=== PATIENT | female | born 1985 | race Caucasian/White ===

== ENCOUNTER 2023-01-19 15:35 | Inpatient (IN) | payer BC, MEDICAID, SELFPAY ==
[2023-01-19] VITALS (7 sets, daily range): BP systolic 121–152; BP diastolic 87–106; PULSE 76–92; RESP 15–18; TEMP 35.7–36.8; O2SAT 95–100; BMI 51.0; BMI 24.7; BMI 21.8
--- NOTE | 2023-01-19 16:10 | CT_ITS ---
EXAM: CT HEAD WITHOUT INTRAVENOUS CONTRAST CLINICAL INDICATION: fall TECHNIQUE: Multiple axial images were obtained of the head without intravenous contrast. This CT exam was performed using one or more of the following dose reduction techniques: automated exposure control, adjustment of the mA and/or kV according to patient size, and/or use of iterative reconstruction technique. This report was created using [employer] report generation technology. COMPARISON: 06/26/2017 FINDINGS: BRAIN AND EXTRA-AXIAL SPACES: Unremarkable. No intra- or extra-axial hemorrhage. No evidence of acute infarct. No intracranial mass or mass effect. There is preservation of the martinez/white matter interface. Posterior fossa structures are unremarkable. Ventricles are appropriate for age. No hydrocephalus. Basal cisterns are patent. BONES/JOINTS: Unremarkable. No discrete lytic or blastic abnormalities. SINUSES: Unremarkable as visualized. Clear. MASTOID AIR CELLS: Unremarkable. Clear. ORBITS: Visualized globes, extraocular muscles, optic nerves and retrobulbar fat appear unremarkable. CT/Brain/Head without Contrast IMPRESSION: Negative head/brain CT without intravenous contrast. There has been no change from the reference examination. Electronically Signed: Margarito Loza MD at 18:04 EST ,
--- NOTE | 2023-01-19 16:17 | EDS_ITS ---
HPI History of Present Illness Chief Complaint: ETOH Intox Narrative Narrative: Patient presents intoxicated. I can get some history from her and she admits to quite a bit of alcohol but she does not remember where she is coming from, she was brought in by her roommate who apparently found her at the bottom of the steps. Patient is denying a headache or head injury or fall however my history is relatively limited. PFSH PFSH Home Medications bupropion HCl 150 mg 24 hr tablet, extended release 150 mg PO DAILY 01/19/23 [History Last Taken Unknown] clobetasol 0.05 % topical cream 1 applic topical BID 01/19/23 [History Last Taken Unknown] duloxetine 60 mg capsule,delayed release 60 mg PO DAILY 01/19/23 [History Last Taken Unknown] gabapentin 300 mg capsule 300 mg PO BID 01/19/23 [History Last Taken Unknown] propranolol 20 mg tablet 20 mg PO BID 01/19/23 [History Last Taken Unknown] Allergy/AdvReac Type Severity Reaction Status Date / Time No Known Allergies Allergy Verified 01/19/23 17:11 Social History Smoking Status: Current every day smoker tobacco type: cigarettes and e- cigarettes ROS ROS ED Review of Systems ROS Unobtainable: due to mental status and other Details: Alcohol intoxication EXAM Physical Exam Narrative Exam Narrative: Physical exam General: Patient is sleeping however I can arouse her. Head: Normocephalic, I cannot see any signs of trauma. Eyes: Conjunctiva not pale ENT: Moist mucous membranes, normal dentition no signs of trauma normal tongue without bite. Neck: Supple, Nontender, No lymphadenopathy, no C-spine tenderness Cardiovascular: Regular rate, Regular rhythm Respiratory: No distress, CTA bilaterally Abdomen: Soft, Nontender, Nondistended Back: Nontender, Normal Inspection. Negative for: CVA tenderness, no signs of trauma Extremities: Nontender, No edema, full range of motion without signs of trauma Skin: Normal color, No rash Neurological: Somnolent but arousable with no gross focal deficit Const Vital Signs: 01/19/23 15:37 01/19/23 17:15 01/19/23 15:44 Temperature 96.2 F L Temperature Source Temporal Pulse Rate 83 76 Respiratory Rate 18 15 Respiratory Effort Normal Non-Labored Respiratory Pattern Normal Blood Pressure 150/99 H 121/98 H Blood Pressure Mean 116 105 Pulse Ox 95 96 Oxygen Delivery Method Room Air Room Air 01/19/23 17:44 01/19/23 19:24 Temperature Temperature Source Pulse Rate 80 Respiratory Rate 16 Respiratory Effort Respiratory Pattern Blood Pressure 136/87 H Blood Pressure Mean 103 Pulse Ox 97 99 Oxygen Delivery Method Room Air Room Air MDM MDM Lab Data Labs: Laboratory Results - last 24 hr 01/19/23 01/19/23 01/19/23 17:05 17:05 17:05 WBC 5.8 RBC 5.07 Hgb 12.1 Hct 40.7 MCV 80.3 L MCH 23.9 L MCHC 29.7 L RDW Std Deviation 80.3 H RDW Coeff of Demarcus 27.9 H Plt Count 264 MPV 7.8 Differential Comment SCANNED Sodium 146 H Potassium 3.6 Chloride 108 H Carbon Dioxide 31.0 Anion Gap 7 BUN 13 Creatinine 0.57 Estim Creat Clear Calc 118.96 Est GFR (MDRD) Af Amer 155 Est GFR (MDRD) Non-Af 128 BUN/Creatinine Ratio 22.8 H Glucose 90 Calcium 8.7 Total Bilirubin 0.20 AST 162 H ALT 180 H Alkaline Phosphatase 130 H Total Protein 7.7 Albumin 3.9 Globulin 3.8 Albumin/Globulin Ratio 1.0 Ethyl Alcohol 505.0 H* Radiography Diagnostic Testing: Clinical Impression(s) from Imaging Studies Brain CT 01/19/23 16:10 IMPRESSION: Negative head/brain CT without intravenous contrast. There has been no change from the reference examination. Electronically Signed: Margarito Loza MD at 18:04 EST , Patient was observed in the ED her alcohol level is quite elevated at 5.5. After hours of observation she is more lucid and coherent she tells me she has a 14-year-old boy at home and has been, she tries to not drink every day but every morning she wakes up she starts shaking and feeling quite nauseated therefore she feels like she has to drink. She drinks quite a bit of vodka. She does not want detox at this time. I will talk to the hospitalist for admission. Discharge Plan Triage Chief Complaint: ETOH Intox Other Complaint: Alt LOC ED Provider: Damir Gibson Dx/Rx/DC Orders Clinical Impression: Head injury, Alcohol intoxication, Fall Prescriptions: No Action clobetasol 0.05 % cream 1 applic TOPICAL BID Label Comments: APPLY TO AFFECTED AREA OF THE HANDS TWICE DAILY X2 WEEKS NEEDED FOR FLARES gabapentin 300 mg capsule 300 mg PO BID Label Comments: TAKE 1 ORAL CAPSULE 2 TIMES A DAY FOR ANXIETY propranolol 20 mg tablet 20 mg PO BID bupropion HCl 150 mg tablet extended release 24 hr 150 mg PO DAILY duloxetine 60 mg capsule,delayed release(DR/EC) 60 mg PO DAILY Primary Care Provider: [facility],Out of Referrals: [facility],Out of [Primary Care Provider] - Disposition Disposition: Acute Care Hospital [facility]
[2023-01-19 17:19] LABS: Hematocrit 40.7 % (37-47); Hemoglobin 12.1 g/dL (12.0-15.0); Mean Corp Hgb Conc 29.7 g/dL (32-36); Mean Corpuscular Hgb 23.9 pg (27.0-32.0); Mean Corpuscular Volume 80.3 fL (81-99); Mean Platelet Vol. 7.8 fl (6.2-12.0); POSITIVE MORPHOLOGY YES; Platelet Count 264 K/mm3 (150-450); RBC Distribution Width CV 27.9 % (11.6-14.6); RBC Distribution Width SD 80.3 fl (35.1-43.9); Red Blood Count 5.07 M/mm3 (4.2-5.4); White Blood Count 5.8 K/mm3 (4.4-11.0)
[2023-01-19 17:31] LABS: AST(SGOT) 162 U/L (15-37); Alanine Aminotransfer ALT/SGPT 180 U/L (13-56); Albumin, Serum 3.9 g/dL (3.2-5.0); Alkaline Phosphatase 130 U/L (45-117); Anion Gap 7 (5-15); BUN 13 mg/dL (7-18); BUN/Creat Ratio 22.8 RATIO (10-20); Calcium,Total 8.7 mg/dL (8.5-10.1); Chloride 108 mmol/L (98-107); Creatinine, Serum 0.57 mg/dL (0.55-1.02); EST Glomerular Filtration Rate 128 mL/min (>60); Est Glom Filt Rate - Afr Amer 155 mL/min (>60); Estimated Creatinine Clearance 118.96 ml/min; Globulin 3.8 g/dL (2.2-4.2); Glucose 90 mg/dL (74-106); Potassium 3.6 mmol/L (3.5-5.1); Protein, Total 7.7 g/dL (6.4-8.2); Sodium Level 146 mmol/L (136-145)
[2023-01-19 17:37] LABS: Scan Indicated on CBC? Y/N YES- FLAGS NOTED
[2023-01-19 17:59] LABS: Differential Comment SCANNED
--- NOTE | 2023-01-19 20:58 | PCM.HP.STD ---
HPI - General General Date of Admission: 01/19/23 Date of Service: 01/19/23 Chief Complaint: Desire for alcohol detoxification HPI Narrative LISA TURPIN, is a 37 F with a significant history of Raynaud's disease; depression and anxiety (on bupropion; duloxetine and propranolol);fibromyalgia and alcoholism who originally presented to the emergency department because she was found drunk and on the floor who is now requesting detox. Patient reported that she was sober from alcohol for about 7 years but less than a month ago she began drinking again. She drinks a lot of vodka each day. Last time she drank was just before coming to the emergency department [facility] Medical History (Updated 01/19/23 @ 22:51 by Christin Diaz) Anxiety Breast implant status Depression Home Medications bupropion HCl 150 mg 24 hr tablet, extended release 150 mg PO DAILY Check with primary doctor 01/19/23 [History Last Taken 01/18/23] clobetasol 0.05 % topical cream 1 applic topical BID Check with primary doctor 01/19/23 [History Last Taken Unknown] duloxetine 60 mg capsule,delayed release 60 mg PO DAILY Check with primary doctor 01/19/23 [History Last Taken 01/18/23] ferrous sulfate 325 mg (65 mg iron) tablet 325 mg PO QODAY Check with primary doctor 01/19/23 [History Last Taken 01/18/23] gabapentin 300 mg capsule 300 mg PO BID Check with primary doctor 01/19/23 [History Last Taken 01/18/23] omeprazole 20 mg capsule,delayed release 20 mg PO DAILY Check with primary doctor 01/19/23 [History Last Taken 01/18/23] propranolol 20 mg tablet 20 mg PO BID Check with primary doctor 01/19/23 [History Last Taken 01/18/23] Allergy/AdvReac Type Severity Reaction Status Date / Time No Known Allergies Allergy Verified 01/19/23 17:11 Family History Other Diabetes Hypertension Surgical History History of appendectomy Social History Smoking Status: Current every day smoker tobacco type: cigarettes and e-cigarettes ROS ROS Narrative Pertinent positives and pertinent negatives as noted in HPI. All other systems were reviewed and are negative Vital Signs Vital Signs Vital Signs: 01/19/23 15:37 01/19/23 17:15 01/19/23 15:44 Temperature 96.2 F L Temperature Source Temporal Pulse Rate 83 76 Respiratory Rate 18 15 Respiratory Effort Normal Non-Labored Respiratory Pattern Normal Blood Pressure 150/99 H 121/98 H Blood Pressure Mean 116 105 Pulse Ox 95 96 Oxygen Delivery Method Room Air Room Air 01/19/23 17:44 01/19/23 19:24 Temperature Temperature Source Pulse Rate 80 Respiratory Rate 16 Respiratory Effort Respiratory Pattern Blood Pressure 136/87 H Blood Pressure Mean 103 Pulse Ox 97 99 Oxygen Delivery Method Room Air Room Air Weight Weight: 65.431 kg Body Mass Index (BMI) 24.7 Physical Exam Narrative Physical exam: General: Well-nourished, well-developed. Head: Normocephalic, atraumatic, no tenderness Eyes: Vision is grossly intact. EOMI ENT, no trauma, moist mucous membranes, no rhinorrhea Neck: Nontender, No thyromegaly. CVS: Regular rate and rhythm. S1-S2 present. No murmur, gallop or rub. Respiratory : clear to auscultation bilaterally, chest wall nontender, no wheezing Abdomen: Soft, nontender, nondistended, normal bowel sounds, no masses : Deferred Back: Nontender, no CVA tenderness, no midline spinal tenderness, deformities, step-offs Extremities: Nontender full range of motion, no trauma Skin: Normal color, no trauma, abrasions Neuro: Alert, oriented, cranial nerves II through XII grossly intact. Psychiatry: Normal mood. Normal affect. Not depressed. Not anxious. Results Lab / Micro Data Result Diagrams: 01/19/23 17:05 01/19/23 17:05 Labs: Laboratory Results - last 24 hr 01/19/23 17:05: WBC 5.8, RBC 5.07, Hgb 12.1, Hct 40.7, MCV 80.3 L, MCH 23.9 L, MCHC 29.7 L, RDW Std Deviation 80.3 H, RDW Coeff of Demarcus 27.9 H, Plt Count 264, MPV 7.8, Differential Comment SCANNED 01/19/23 17:05: Sodium 146 H, Potassium 3.6, Chloride 108 H, Carbon Dioxide 31.0, Anion Gap 7, BUN 13, Creatinine 0.57, Estim Creat Clear Calc 118.96, Est GFR (MDRD) Af Amer 155, Est GFR (MDRD) Non-Af 128, BUN/Creatinine Ratio 22.8 H, Glucose 90, Calcium 8.7, Total Bilirubin 0.20, AST 162 H, ALT 180 H, Alkaline Phosphatase 130 H, Total Protein 7.7, Albumin 3.9, Globulin 3.8, Albumin/Globulin Ratio 1.0 01/19/23 17:05: Ethyl Alcohol 505.0 H* Radiology Impression Brain CT 01/19/23 16:10 IMPRESSION: Negative head/brain CT without intravenous contrast. There has been no change from the reference examination. Electronically Signed: Margarito Loza MD at 18:04 EST , Assessment & Plan Assessment/Plan (1) Alcohol intoxication: (2) Desire for detoxification: PLAN: Plan Alcohol intoxication, dependence and desire for detoxification Patient be started on phenobarbital and other adjunctive medications: Gabapentin as needed; dicyclomine as needed; Vistaril as needed; Imodium as needed; trazodone as needed; Zofran as needed; scheduled thiamine; and schedule folic acid. Monitor CIWA score Tobacco abuse Counseled Nicotine patch and nicotine gum prescribed. DVT prophylaxis Low risk Encourage to ambulate Charges/Coding Visit Charges Inpatient E&M: 56730 Init Hosp L2
[2023-01-19 22:28] LABS: Internal QC Validated? YES +Cl - CLEAR BKGD; Pregnancy, Serum, hCG Quali. NEGATIVE Negative
[2023-01-19] MEDS: Clobetasol Propionate 0.05% Cream 1 APPLIC TOPICAL (23:32)
[2023-01-19] MEDS: Propranolol 10 MG Tablet 20 MG PO (23:32)
[2023-01-19] MEDS: Gabapentin 300 MG Capsule PO (23:33)
[2023-01-19] MEDS: Phenobarbital 32.4 MG Tablet PO (23:33)
[2023-01-19] MEDS: hydrOXYzine PAM 25 MG Capsule 50 MG PO (23:33)
[2023-01-19] MEDS: traZODone 100 MG Tablet PO (23:33)
[2023-01-19] MEDS: Nicotine Polacrilex 2 MG GUM PO (23:41)
[2023-01-20] MEDS: Phenobarbital 32.4 MG Tablet PO ×6 (04:00→23:44)
[2023-01-20 04:08] VITALS: BP 118/79; PULSE 95; RESP 18; TEMP 37.1; O2SAT 95
[2023-01-20] MEDS: Folic Acid 1 MG Tablet PO (08:43)
[2023-01-20] MEDS: Thiamine Hydrochloride 100 MG Tablet PO (08:43)
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
[2023-01-20 10:14] VITALS: BP 132/81; PULSE 99; RESP 16; TEMP 37.2; O2SAT 99
[2023-01-20] MEDS: DULoxetine Hcl 60 MG Capsule PO (10:19)
[2023-01-20] MEDS: buPROPion (XL) 150 MG TABLET.XL PO (10:19)
[2023-01-20] MEDS: Propranolol 10 MG Tablet 20 MG PO ×2 (10:19→22:18)
[2023-01-20] MEDS: Gabapentin 300 MG Capsule PO ×2 (10:25→22:16)
[2023-01-20] MEDS: hydrOXYzine PAM 25 MG Capsule 50 MG PO ×4 (10:25→23:44)
[2023-01-20 14:24] VITALS: BP 139/91; PULSE 77; RESP 16; TEMP 36.9; O2SAT 100
[2023-01-20] MEDS: Ferrous Sulfate 325 MG Tablet PO (19:11)
[2023-01-20 19:13] VITALS: BP 141/93; PULSE 78; RESP 18; TEMP 36.7; O2SAT 100
[2023-01-20 21:56] VITALS: BP 138/94; PULSE 78; RESP 18; TEMP 36.8; O2SAT 100
[2023-01-20] MEDS: traZODone 100 MG Tablet PO (22:16)
[2023-01-21 03:52] VITALS: BP 121/76; PULSE 76; RESP 18; TEMP 36.6; O2SAT 98
[2023-01-21] MEDS: Phenobarbital 32.4 MG Tablet PO ×6 (03:54→23:10)
[2023-01-21] MEDS: hydrOXYzine PAM 25 MG Capsule 50 MG PO ×3 (07:03→23:10)
[2023-01-21 08:23] VITALS: BP 115/86; PULSE 79; RESP 16; TEMP 36.6; O2SAT 100
[2023-01-21] MEDS: DULoxetine Hcl 60 MG Capsule PO (08:28)
[2023-01-21] MEDS: Thiamine Hydrochloride 100 MG Tablet PO (08:28)
[2023-01-21] MEDS: Folic Acid 1 MG Tablet PO (08:28)
[2023-01-21] MEDS: Propranolol 10 MG Tablet 20 MG PO ×2 (08:28→22:10)
[2023-01-21] MEDS: Pantoprazole Sodium 20 MG Tablet PO (08:29)
[2023-01-21] MEDS: buPROPion (XL) 150 MG TABLET.XL PO (08:30)
[2023-01-21] MEDS: Sodium Chloride 0.65% 1 SPRAY SPRAY.BTL NASAL (08:30)
[2023-01-21] MEDS: Gabapentin 300 MG Capsule PO ×2 (09:39→22:10)
[2023-01-21 12:30] VITALS: BP 102/72; PULSE 79; RESP 16; TEMP 36.4; O2SAT 100
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
[2023-01-21] MEDS: Menthol/Lanolin/Calamine/Znox 113 GM Tube 1 APPLIC TOPICAL ×2 (15:28→22:10)
[2023-01-21 16:56] VITALS: BP 121/90; PULSE 77; RESP 16; TEMP 37.1; O2SAT 100
[2023-01-21 21:03] VITALS: BP 127/91; PULSE 84; RESP 18; TEMP 37.1; O2SAT 97
[2023-01-21] MEDS: traZODone 100 MG Tablet PO (22:10)
[2023-01-22] MEDS: Phenobarbital 32.4 MG Tablet PO ×4 (02:56→19:07)
[2023-01-22 03:00] VITALS: BP 102/66; PULSE 69; RESP 18; TEMP 36.5; O2SAT 98
--- NOTE | 2023-01-22 07:08 | PCM.PN.HOSP ---
Reason for Visit Reason for Visit: Diagnoses Alcohol use, unspecified with intoxication, unspecified (01/19/23) Subjective Subjective Still has some congestion, overall feeling better, has some sweats but not very shaky Objective Data Objective Data Vital Signs: Vital Signs Temp Pulse Resp BP Pulse Ox O2 Del Method 97.7 F L 69 18 102/66 98 Room Air 01/22/23 03:00 01/22/23 03:00 01/22/23 03:00 01/22/23 03:00 01/22/23 03:00 01/22/23 03:00 Oxygen Delivery Method Room Air Weight: 59.6 kg Body Mass Index (BMI) 21.8 Intake & Output: Intake and Output for Last 24 Hours 01/20/23 01/21/23 01/22/23 23:59 23:59 23:59 Intake Total 2260 / 2260 1300 / 1300 Balance 2260 / 2260 1300 / 1300 Lab / Micro Data Result Diagrams: 01/19/23 17:05 01/19/23 17:05 Physical Exam Narrative General: Alert, oriented, no apparent distress HEENT: Atraumatic, normocephalic, has some nasal congestion Eyes: Anicteric, normal conjunctiva, extraocular movements grossly intact Neck: Supple Respiratory: normal respiratory effort Cardiovascular: No over edema appreciated GI: Soft, nontender, nondistended Musculoskeletal: Moving all extremities Neuro: No overt focal neurological deficits Skin: Erythema in right AC improving, left hand also improving Psych: Cooperative Assessment & Plan Assessment/Plan (1) Alcohol intoxication: (2) Desire for detoxification: PLAN: Plan #Alcohol intoxication, dependence and desire for detoxification -Patient be started on phenobarbital and other adjunctive medications: Gabapentin as needed; dicyclomine as needed; Vistaril as needed; Imodium as needed; trazodone as needed; Zofran as needed; scheduled thiamine; and schedule folic acid. -Monitor CIWA score 3/: Continue phenobarb detox -3/2: Continue phenobarb detox -33: Taper will be done tomorrow evening and can be discharged at that time if stable #Nasal congestion?acute bacterial rhinosinusitis -Roughly 1 week from symptoms denies sinus tenderness, if continues will give course of antibiotics -3/2: Improving with nasal spray -33: Given timeline and continued symptoms will start Augmentin and treat for 5 days #Tobacco abuse -Counseled -Nicotine patch and nicotine gum prescribed. DVT prophylaxis Low risk Encourage to ambulate Charges/Coding Visit Charges Inpatient E&M: 37218 Subs Hosp L2
[2023-01-22] MEDS: Propranolol 10 MG Tablet 20 MG PO ×2 (08:20→20:54)
[2023-01-22] MEDS: DULoxetine Hcl 60 MG Capsule PO (08:21)
[2023-01-22] MEDS: Pantoprazole Sodium 20 MG Tablet PO (08:21)
[2023-01-22] MEDS: buPROPion (XL) 150 MG TABLET.XL 450 MG PO (08:21)
[2023-01-22] MEDS: Ferrous Sulfate 325 MG Tablet PO (08:21)
[2023-01-22] MEDS: Thiamine Hydrochloride 100 MG Tablet PO (08:21)
[2023-01-22] MEDS: Folic Acid 1 MG Tablet PO (08:23)
[2023-01-22] MEDS: Gabapentin 300 MG Capsule PO ×2 (08:26→20:54)
[2023-01-22] MEDS: Menthol/Lanolin/Calamine/Znox 113 GM Tube 1 APPLIC TOPICAL (08:27)
[2023-01-22 08:36] VITALS: BP 100/67; PULSE 70; RESP 16; TEMP 36.6; O2SAT 100
--- NOTE | 2023-01-22 09:52 | ADDICTION ---
Met with patient and completed all assessments. 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 Pt has refused any follow-up treatment.
[2023-01-22] MEDS: hydrOXYzine PAM 25 MG Capsule 50 MG PO ×2 (12:42→19:41)
[2023-01-22 12:47] VITALS: BP 125/96; PULSE 77; RESP 16; TEMP 37.2; O2SAT 100
[2023-01-22 17:46] VITALS: BP 115/79; PULSE 82; RESP 16; TEMP 36.9; O2SAT 100
[2023-01-22 17:47] VITALS: BP 115/79; PULSE 82; RESP 16; TEMP 36.9; O2SAT 100
[2023-01-22] MEDS: Acetaminophen 325 MG Tablet 650 MG PO (19:41)
[2023-01-22] MEDS: traZODone 100 MG Tablet PO (20:54)
[2023-01-22] MEDS: Amox/Clavulanate 875 MG Tablet PO (20:54)
[2023-01-22 21:30] VITALS: BP 113/67; PULSE 82; RESP 18; TEMP 37.1; O2SAT 100
[2023-01-23] MEDS: Phenobarbital 32.4 MG Tablet PO ×3 (01:25→13:13)
[2023-01-23 02:05] VITALS: BP 99/65; PULSE 71; RESP 18; TEMP 36.4; O2SAT 97
[2023-01-23] MEDS: buPROPion (XL) 150 MG TABLET.XL 450 MG PO (08:22)
[2023-01-23] MEDS: Propranolol 10 MG Tablet 20 MG PO (08:22)
[2023-01-23] MEDS: Folic Acid 1 MG Tablet PO (08:22)
[2023-01-23] MEDS: Thiamine Hydrochloride 100 MG Tablet PO (08:23)
[2023-01-23] MEDS: Amox/Clavulanate 875 MG Tablet PO (08:23)
[2023-01-23] MEDS: DULoxetine Hcl 60 MG Capsule PO (08:23)
[2023-01-23] MEDS: Pantoprazole Sodium 20 MG Tablet PO (08:24)
[2023-01-23] MEDS: Gabapentin 300 MG Capsule PO (08:25)
[2023-01-23 08:52] VITALS: BP 115/74; PULSE 72; RESP 16; TEMP 37.1; O2SAT 93
--- NOTE | 2023-01-23 09:46 | PCM.DC.SUM ---
Providers Date of Admission: 01/19/23 Date of Discharge: 01/23/23 Primary Care Physician: Karma Hernandez Reason For Visit: DESIRE FOR ALCOHOL DETOXIFICATION Diagnosis Discharge Diagnosis (1) Alcohol intoxication: Status: Acute Code(s): F10.929 - Alcohol use, unspecified with intoxication, unspecified (2) Desire for detoxification: Status: Acute Plan #Alcohol intoxication, dependence and desire for detoxification #Nasal congestion?acute bacterial rhinosinusitis #Tobacco abuse Medications at Discharge Home Medications clobetasol 0.05 % topical cream 1 applic topical BID Check with primary doctor 01/19/23 duloxetine 60 mg capsule,delayed release 60 mg PO DAILY Check with primary doctor 01/19/23 ferrous sulfate 325 mg (65 mg iron) tablet 325 mg PO QODAY Check with primary doctor 01/19/23 gabapentin 300 mg capsule 300 mg PO BID Check with primary doctor 01/19/23 omeprazole 20 mg capsule,delayed release 20 mg PO DAILY Check with primary doctor 01/19/23 propranolol 20 mg tablet 20 mg PO BID Check with primary doctor 01/19/23 amoxicillin 875 mg-potassium clavulanate 125 mg tablet 875 mg PO BID 7 days #14 tabs 01/23/23 bupropion HCl 150 mg 24 hr tablet, extended release 450 mg PO DAILY Check with primary doctor #90 tabs 01/23/23 Hospital Course Summary of Care Provided Minutes Spent on Discharge: 32 Hospital Course: LISA TURPIN, is a 37 F with a significant history of Raynaud's disease; depression and anxiety (on bupropion; duloxetine and propranolol);fibromyalgia and? alcoholism who originally presented to the emergency department because she was found drunk and on the floor?on 01/19/2023 and subsequently requested detox. She had been sober for about 7 years but a month ago she began drinking again and would drink a lot of vodka daily. She was admitted for phenobarb detox and tolerated this well. During her hospital stay she did receive Augmentin for sinus infection and also a topical cream added for a scar and rash on her left hand. On day of discharge she reported that her sweats were improving. She discussed with [facility] coordinator and ultimately she will DC to [facility] violence [facility] care with outpatient resources if she chooses to follow-up. Discharge instructions are as followed: -You have been prescribed Augmentin for your sinus infection that you will take twice daily for 7 days, first dose tonight -It is strongly advised that you refrain from any substance use. Please call [facility] located at [address] [place] [address] ([place] [phone]) if you are interested in further resources -Continue other home medication -Please call your primary care provider's office upon discharge to schedule a hospital follow up within 1 week. -For any concerning signs or symptoms please call 911 or proceed to the nearest emergency department Physical Exam Narrative General: Alert, oriented, no apparent distress HEENT: Atraumatic, normocephalic, has some nasal congestion Eyes: Anicteric, normal conjunctiva, extraocular movements grossly intact Neck: Supple Respiratory: normal respiratory effort Cardiovascular: No over edema appreciated GI: Soft, nontender, nondistended Musculoskeletal: Moving all extremities Neuro: No overt focal neurological deficits Skin: Erythema in right AC improving, left hand also improving Psych: Cooperative Weight / BMI Weight Weight: 59.6 kg Body Mass Index (BMI) 21.8 ABG / Lab / Microbiology Data Result Diagrams: 01/19/23 17:05 01/19/23 17:05 D/C Instructions Discharge Diet: No restrictions Meaningful Use Info Meaningful Use Diagnoses (Choose all that apply): None applicable Discharge Plan Admission Admit Date/Time: 01/19/23 20:53 Primary Reason for Your Visit: Alcohol detox Attending Provider: Lori Hollingsworth Primary Care Provider: Karma Hernandez Consulting Providers: Jesse Ellington Instructions Patient Instructions: Alcohol Addiction, Addiction: Getting Help, Addiction Recovery Counseling Additional Instructions / Restrictions: -You have been prescribed Augmentin for your sinus infection that you will take twice daily for 7 days, first dose tonight -It is strongly advised that you refrain from any substance use. Please call [facility] located at [address] [place], [place] [id number] ([place] [phone]) if you are interested in further resources -Continue other home medication -Please call your primary care provider's office upon discharge to schedule a hospital follow up within 1 week. -For any concerning signs or symptoms please call 911 or proceed to the nearest emergency department Discharge Orders/Prescriptions Prescriptions: New amoxicillin-pot clavulanate 875-125 mg Tablet 875 mg PO BID 7 Days Qty: 14 0RF Continued clobetasol 0.05 % cream 1 applic TOPICAL BID Label Comments: APPLY TO AFFECTED AREA OF THE HANDS TWICE DAILY X2 WEEKS NEEDED FOR FLARES gabapentin 300 mg capsule 300 mg PO BID Label Comments: TAKE 1 ORAL CAPSULE 2 TIMES A DAY FOR ANXIETY propranolol 20 mg tablet 20 mg PO BID duloxetine 60 mg capsule,delayed release(DR/EC) 60 mg PO DAILY ferrous sulfate 325 mg (65 mg iron) Tablet 325 mg PO QODAY omeprazole 20 mg capsule,delayed release(DR/EC) 20 mg PO DAILY Changed bupropion HCl 150 mg tablet extended release 24 hr 450 mg PO DAILY Qty: 90 0RF Referrals / Follow Up: Karma Hernandez [Primary Care Provider] - Within 1 Week [facility],Out of [Non-Staff] - Disposition Disposition (needs filled in before D/C Order can be placed): DC/Tx to Another Type of HCF Charges/Coding Visit Charges Inpatient E&M: 08615 Disch Hosp >30min
[2023-01-23] MEDS: hydrOXYzine PAM 25 MG Capsule 50 MG PO (12:22)
== END 2023-01-23 13:30 | disposition home or self-care (01) | DRG 897 ==
LOC: ED 20:54 → MS3 21:42
PROVIDERS: Admitting Provider Hospitalist; Emergency Provider Emergency Medicine; PCP Family Medicine; Visit Provider Internal Medicine
DX: F10.229 Alcohol dependence with intoxication, unspecified (principal); F10.239 Alcohol dependence with withdrawal, unspecified; F17.210 Nicotine dependence, cigarettes, uncomplicated; J01.90 Acute sinusitis, unspecified; F41.9 Anxiety disorder, unspecified; F17.290 Nicotine dependence, other tobacco product, uncomplicated; Y90.8 Blood alcohol level of 240 mg/100 ml or more; R21 Rash and other nonspecific skin eruption; F32.A Depression, unspecified; Z79.899 Other long term (current) drug therapy
CPT/HCPCS: 36415; 70450; 80053; 82077; 84703; 85027; 99284; 99406; J7030; A4216

== ENCOUNTER 2023-03-21 23:26 | Observation (INO) | payer BC, MEDICAID, SELFPAY ==
[2023-03-21 23:27] VITALS: BP 169/89; PULSE 104; RESP 18; TEMP 36; O2SAT 99; BMI 23.8
--- NOTE | 2023-03-21 23:42 | EX.ED.SAOD ---
HPI History of Present Illness Chief Complaint: Substance Abuse Detail of Chief Complaint: Alcohol abuse requesting detox. Informant: patient Onset/Context/Timing Onset: Today and Month(s) Current Severity: Moderate Maximum Severity: Moderate Narrative Narrative: 37-year-old female history of fibromyalgia and alcohol abuse. Last detox was about 3 months ago and states that the only time she was previously detox. History of alcohol abuse. Drinks hard liquor. Had a significant amount in the last 12 hours. Denies any falls or trauma. No vomiting or diarrhea. States I cannot do this alone and I need inpatient detox. Prior similar symptoms: Yes Recent Illness/Hospitalization: Yes [facility] Medical History Alcohol intoxication Anxiety Breast implant status Depression Fall Head injury Home Medications duloxetine 60 mg capsule,delayed release 60 mg PO DAILY Check with primary doctor 01/19/23 [History Last Taken 01/18/23] ferrous sulfate 325 mg (65 mg iron) tablet 325 mg PO QODAY Check with primary doctor 01/19/23 [History Last Taken 01/18/23] gabapentin 300 mg capsule 300 mg PO BID Check with primary doctor 01/19/23 [History Last Taken 01/18/23] propranolol 20 mg tablet 20 mg PO BID Check with primary doctor 01/19/23 [History Last Taken 01/18/23] bupropion HCl 150 mg 24 hr tablet, extended release 450 mg PO DAILY Check with primary doctor #90 tabs 01/23/23 [Rx Last Taken 01/18/23] hydroxyzine pamoate 25 mg capsule 50 mg PO Q6H PRN PRN mild anxiety 5 days #30 caps 01/23/23 [Rx Last Taken Unknown] Allergy/AdvReac Type Severity Reaction Status Date / Time No Known Allergies Allergy Verified 01/19/23 17:11 Family History Other Diabetes Hypertension Surgical History History of appendectomy Social History Smoking Status: Current every day smoker tobacco type: cigarettes and e-cigarettes ROS ROS ED ROS Narrative Denies recent illness. Review of Systems ROS Unobtainable: Denies due to encephalopathy Constitutional Constitutional ED: Denies chills or fever(s) Eyes Eyes: Denies blurry vision ENT ENT ED: Denies ear pain Cardiovascular Cardiovascular: Denies chest pain Respiratory/Chest Respiratory/Chest: Denies dyspnea Gastrointestinal Gastrointestinal: Denies abdominal pain, diarrhea, nausea or vomiting Genitourinary Genitourinary ED: Denies dysuria Musculoskeletal Musculoskeletal: Denies arthralgias Integumentary Denies abscess Neurologic Neurologic: Denies headache(s) Psychiatric Psychiatric: Denies anxiety Endocrine Endocrinology: Denies cold intolerance Hematologic/Lymphatic Hematologic/Lymphatic: Denies easy bleeding Allergic/Immunologic Allergic/Immunologic ED: Denies mouth swelling or tongue swelling EXAM Physical Exam Narrative Exam Narrative: 37-year-old female no acute distress. Vital signs are stable afebrile. H EENT exam unremarkable. Pupils round reactive light. Neck nontender. No lymphadenopathy. Lungs are clear equal symmetrical. Heart regular rhythm rate about 100 no murmur. Chest wall nontender. Abdomen soft nontender. Normal bowel sounds no peritoneal signs. Back nontender. Moving all 4 extremities. Normal motor strength. Normal range of motion. Nontender. No deformity. No edema. Neurologically she is awake and alert. Most likely intoxicated. But answering questions and following commands. Const Vital Signs: 03/21/23 23:27 Temperature 96.8 F L Temperature Source Temporal Pulse Rate 104 H Respiratory Rate 18 Blood Pressure 169/89 H Blood Pressure Mean 115 Pulse Ox 99 Oxygen Delivery Method Room Air Positive well nourished and well developed; Negative for obese, cachectic, contractures or unkempt General Appearance ED: well developed and NAD; Negative for unkempt, cachectic, contractures or pallor Nutritional Appearance: Negative for cachectic or obese HEENT Reports moist mucous membranes; Denies dry mucous membranes atraumatic; Negative for trauma or tenderness Mouth ED: No dry mucous membranes Mouth: No dry mucous membranes Eyes PERRL and EOMs intact bilaterally General Eye ED: Negative for pale conjunctiva or scleral icterus Neck no lymphadenopathy, supple and no JVD Thyroid: Negative for tender Lymph Lymphatic: no lymphadenopathy noted; Negative for lymphadenopathy Chest Wall inspection of chest normal and palpation of chest normal Chest: Negative for other Resp normal respiratory effort and clear to auscultation bilaterally Effort and Inspection: Negative for retractions Auscultation: Negative for rales, rhonchi or wheezes Cardio regular rate, regular rhythm, S1 normal heart sound, S2 normal heart sound and no murmurs Rate: Negative for bradycardia Rhythm: Negative for abnormal rhythm GI soft to palpation, non-tender, non-distended and no masses Inspection: Negative for abdominal distention Auscultation: Negative for hyperactive bowel sounds Palpation: Negative for tender, guarding or rigid Back/Spine no CVA tenderness General Back: Negative for CVA tenderness Cervical Spine: Negative for cervical spine tenderness Thoracic Spine / Upper Back: Negative for thoracic spinal tenderness Lumbar Spine / Lower Back: Negative for lumbar spinal tenderness Coccyx: Negative for swelling Extremity Extremity Narrative: Normal range of motion. Normal motor strength. General Extremety ED: Negative for edema or tenderness General Extremity: Negative for edema Neuro oriented x3 and CN's II-XII intact bilaterally Sensorium / Orientation: alert, oriented to person, oriented to place and oriented to time; Negative for confused, lethargic or stuporous Speech: speech normal Motor Exam: strength 5/5 throughout Psych mental status grossly normal and thought process normal Appearance: Negative for unkempt Attitude: No belligerent, No agitated, No aggressive and No hostile Mood & Affect: Negative for depressed, anxious or tearful Skin General Skin Exam: Negative for jaundice or pallor Lesions: no lesions Rashes: no rashes Trauma: Negative for abrasion or laceration MDM MDM MDM Narrative Medical decision making narrative: 37-year-old female history of alcohol abuse. Requesting detox. Exam benign. Screening labs being obtained and I will speak to the hospitalist about admission. History & Record Review Discussion w/independent historian: Patient Lab Data Attestation: I reviewed the patient's lab results. Lab results narrative: CBC White count of 4. H&H of 10.9 and 35.7. Platelets 281. Chemistries are unremarkable. LFTs are slightly elevated. The anemia is new her hemoglobin normally runs around 12. The liver enzymes have been more elevated in the past. Serum alcohol level 285. Labs: Laboratory Results - last 24 hr 03/21/23 23:56 WBC 4.7 RBC 4.24 Hgb 10.9 L Hct 35.7 L MCV 84.2 MCH 25.7 L MCHC 30.5 L RDW Std Deviation 70.6 H RDW Coeff of Demarcus 22.9 H Plt Count 281 MPV 8.2 Immature Gran % (Auto) 0.200 Neut % (Auto) 43.1 L Lymph % (Auto) 36.7 Roberts % (Auto) 16.8 H Eos % (Auto) 1.5 Baso % (Auto) 1.7 H Absolute Neuts (auto) 2.0 Absolute Lymphs (auto) 1.72 Nucleated RBC % 0 Discharge Plan Dx/Rx/DC Orders Clinical Impression: Alcohol abuse, Acute alcohol intoxication, Admitted to alcohol detoxification center Disposition Disposition: Acute Care Hospital [facility] Discharge Date/Time: 03/22/23 00:42
[2023-03-22] VITALS (8 sets, daily range): BP systolic 139–160; BP diastolic 84–114; PULSE 78–97; RESP 16–18; TEMP 36.2–37.4; O2SAT 96–100; BMI 23.1
[2023-03-22 00:02] LABS: Absolute Lymphocyte Count 1.72 X10^3/uL (0.83-4.51); Basophil# 0.08 X10^3/uL; Basophil% 1.7 % (0-1); Eosinophil# 0.07 X10^3/uL; Eosinophils% 1.5 % (0-5); Hematocrit 35.7 % (37-47); Hemoglobin 10.9 g/dL (12.0-15.0); Lymphocyte # 1.72 X10^3/ul (0.83-4.51); Lymphocyte % 36.7 % (19-41); Mean Corp Hgb Conc 30.5 g/dL (32-36); Mean Corpuscular Hgb 25.7 pg (27.0-32.0); Mean Corpuscular Volume 84.2 fL (81-99); Mean Platelet Vol. 8.2 fl (6.2-12.0); Monocyte# 0.79 X10^3/uL; Monocyte% 16.8 % (0-10); NRBC Flagged by Analyzer 0 % (0-5); Neutrophil # 2.02 X10^3/uL (2.7-7.7); Neutrophil % 43.1 % (47-70); POSITIVE MORPHOLOGY YES; Platelet Count 281 K/mm3 (150-450); RBC Distribution Width CV 22.9 % (11.6-14.6); RBC Distribution Width SD 70.6 fl (35.1-43.9); Red Blood Count 4.24 M/mm3 (4.2-5.4); White Blood Count 4.7 K/mm3 (4.4-11.0)
--- NOTE | 2023-03-22 00:05 | PCM.HP.STD ---
HPI - General General Date of Admission: 03/21/23 Date of Service: 03/22/23 Chief Complaint: Desire for detoxification HPI Narrative LISA TURPIN, is a 37 F with a significant history of Raynaud's disease; depression and anxiety (on bupropion; duloxetine and propranolol);fibromyalgia on gabapentin; and? alcoholism who presents to the emergency department for help with alcohol detoxification. Reportedly patient was a heavy alcoholic but became sober about 7 years only to resume drinking about 3 to 4 months ago secondary to his father passing away and problems in her marriage. She reports that before the 7 years of getting sober she used to drink heavily and few times but now she drinks every day. She drinks at least half a gallon of vodka each day. [facility] Medical History Alcohol intoxication Anxiety Breast implant status Depression Fall Head injury Home Medications duloxetine 60 mg capsule,delayed release 120 mg PO DAILY depression 01/19/23 [History Last Taken 03/21/23] ferrous sulfate 325 mg (65 mg iron) tablet 325 mg PO QODAY supplement 01/19/23 [History Last Taken 03/20/23] gabapentin 300 mg capsule 300 mg PO BID fibromyalgia 01/19/23 [History Last Taken 03/21/23] propranolol 20 mg tablet 20 mg PO BID anxiety 01/19/23 [History Last Taken 03/21/23] bupropion HCl 150 mg 24 hr tablet, extended release 450 mg PO DAILY Check with primary doctor #90 tabs 01/23/23 [Rx Last Taken 03/21/23] hydroxyzine pamoate 25 mg capsule 50 mg PO Q6H PRN PRN mild anxiety 5 days #30 caps 01/23/23 [Rx Last Taken Unknown] eszopiclone 3 mg tablet 3 mg PO QHS PRN Sleep 03/22/23 [History Last Taken Unknown] Allergy/AdvReac Type Severity Reaction Status Date / Time No Known Allergies Allergy Verified 01/19/23 17:11 Family History Other Diabetes Hypertension Surgical History History of appendectomy Social History Smoking Status: Current every day smoker tobacco type: cigarettes and e-cigarettes ROS ROS Narrative Pertinent positives and pertinent negatives as noted in HPI. All other systems were reviewed and are negative. Vital Signs Vital Signs Vital Signs: 03/21/23 23:27 03/22/23 00:00 Temperature 96.8 F L 97.1 F L Temperature Source Temporal Oral Pulse Rate 104 H 82 Respiratory Rate 18 16 Blood Pressure 169/89 H 139/84 H Blood Pressure Mean 115 102 Pulse Ox 99 97 Oxygen Delivery Method Room Air Room Air Weight Weight: 65.1 kg Body Mass Index (BMI) 23.8 Physical Exam Narrative Physical exam: General: Well-nourished, well-developed. Head: Normocephalic, atraumatic, no tenderness Eyes: Vision is grossly intact. EOMI ENT, no trauma, moist mucous membranes, no rhinorrhea Neck: Nontender, No thyromegaly. CVS: Regular rate and rhythm. S1-S2 present. No murmur, gallop or rub. Respiratory : clear to auscultation bilaterally, chest wall nontender Abdomen: Soft, nontender, nondistended, normal bowel sounds, no masses : Deferred Back: Nontender, no CVA tenderness, no midline spinal tenderness. Extremities: Nontender full range of motion, no trauma Skin: Normal color, no trauma, abrasions Neuro: Alert, oriented, cranial nerves II through XII grossly intact. Psychiatry: Normal mood. Normal affect. Not depressed. Not anxious. Results Lab / Micro Data Result Diagrams: 03/21/23 23:56 03/21/23 23:56 Assessment & Plan Assessment/Plan (1) Desire for detoxification: (2) Alcohol abuse: PLAN: Plan Alcohol dependence and desire for detoxification Alcohol level on presentation was 285. Patient be started on phenobarbital and other adjunctive medications: dicyclomine as needed; Vistaril as needed; Imodium as needed; trazodone as needed; Zofran as needed; scheduled thiamine; and schedule folic acid. Monitor CIWA score Tobacco abuse Counseled Nicotine patch prescribed. DVT prophylaxis Low risk Encourage to ambulate Charges/Coding Visit Charges Inpatient E&M: 15778 Init Hosp L2
[2023-03-22 00:06] LABS: Differential Indicated SCAN CRITERIA MET
[2023-03-22 00:21] LABS: ALB/GLOB Ratio 1.2 RATIO (0.9-2.4); AST(SGOT) 104 U/L (15-37); Alanine Aminotransfer ALT/SGPT 107 U/L (13-56); Albumin, Serum 3.7 g/dL (3.2-5.0); Alkaline Phosphatase 137 U/L (45-117); Anion Gap 4 (5-15); BUN 14 mg/dL (7-18); BUN/Creat Ratio 29.5 RATIO (10-20); Calcium,Total 8.5 mg/dL (8.5-10.1); Chloride 108 mmol/L (98-107); Creatinine, Serum 0.47 mg/dL (0.55-1.02); EST Glomerular Filtration Rate 158 mL/min (>60); Est Glom Filt Rate - Afr Amer 192 mL/min (>60); Estimated Creatinine Clearance 150.33 ml/min; Globulin 3.1 g/dL (2.2-4.2); Glucose 90 mg/dL (74-106); Potassium 3.7 mmol/L (3.5-5.1); Protein, Total 6.8 g/dL (6.4-8.2); Sodium Level 142 mmol/L (136-145)
[2023-03-22 00:27] LABS: Anisocytosis 2+
[2023-03-22] MEDS: Phenobarbital 32.4 MG Tablet 64.7999999999999972 MG PO ×6 (01:05→21:51)
[2023-03-22] MEDS: hydrOXYzine PAM 25 MG Capsule 50 MG PO ×2 (01:05→13:32)
[2023-03-22] MEDS: traZODone 100 MG Tablet PO (01:05)
--- NOTE | 2023-03-22 02:25 | PCM.PN.BLA ---
Progress Note Intubation Indication: [ ] Consent was obtained from: [ ] The patient was placed in the appropriate sniffing position. Preoxygenated sedation via [ ] was provided for a minimum of 3 minutes. The patient had continuous cardiac as well as pulse oximetry monitoring during the procedure. Procedure sedation was provided by the administration of [ ]. Direct laryngoscopy was then performed using a number [ ] blade, which revealed a grade [ ] view. A [ ] mm endotracheal tube was visualized advancing between the cords to the level of [ ] cm at the lip. The stylette was then removed and discarded. Tube placement was confirmed by fogging in the tube along with equal and bilateral breath sounds. Colorimetric change was visualized on the CO2 meter. The cuff was then inflated and the tube secured using a commercially available device. A good pulse oximetry waveform was seen on the monitor throughout the procedure. A portable chest x-ray has been ordered to confirm appropriate placement. The patient tolerated the procedure well.
--- NOTE | 2023-03-22 07:37 | PCM.PN.HOSP ---
Reason for Visit Reason for Visit: Diagnoses Alcohol abuse, uncomplicated (03/21/23) Objective Data Objective Data Vital Signs: Vital Signs Temp Pulse Resp BP Pulse Ox O2 Del Method 99.4 F H 93 18 140/96 H 99 Room Air 03/22/23 05:01 03/22/23 05:01 03/22/23 05:01 03/22/23 05:01 03/22/23 05:01 03/22/23 05:01 Oxygen Delivery Method Room Air Weight: 138 lb 14.259 oz Body Mass Index (BMI) 23.1 Lab / Micro Data Result Diagrams: 03/21/23 23:56 03/21/23 23:56 Labs: Laboratory Results - last 24 hr 03/21/23 23:56: WBC 4.7, RBC 4.24, Hgb 10.9 L, Hct 35.7 L, MCV 84.2, MCH 25.7 L, MCHC 30.5 L, RDW Std Deviation 70.6 H, RDW Coeff of Demarcus 22.9 H, Plt Count 281, MPV 8.2, Immature Gran % (Auto) 0.200, Neut % (Auto) 43.1 L, Lymph % (Auto) 36.7, Robertson % (Auto) 16.8 H, Eos % (Auto) 1.5, Baso % (Auto) 1.7 H, Absolute Neuts (auto) 2.0, Absolute Lymphs (auto) 1.72, Nucleated RBC % 0, Anisocytosis 2+ 03/21/23 23:56: Sodium 142, Potassium 3.7, Chloride 108 H, Carbon Dioxide 30.0, Anion Gap 4 L, BUN 14, Creatinine 0.47 L, Estim Creat Clear Calc 150.33, Est GFR (MDRD) Af Amer 192, Est GFR (MDRD) Non-Af 158, BUN/Creatinine Ratio 29.5 H, Glucose 90, Calcium 8.5, Total Bilirubin 0.20, AST 104 H, ALT 107 H, Alkaline Phosphatase 137 H, Total Protein 6.8, Albumin 3.7, Globulin 3.1, Albumin/Globulin Ratio 1.2 03/21/23 23:56: Ethyl Alcohol 285.0 Physical Exam Narrative Seen and examined. Patient is stated she left after several years of sobriety. In the past she used to drink 1-2 drinks per month. After labs she is drinking half gallon of vodka every day for 3 to 4 months after her father from problem in marriage. Denies hallucination delusion or illusion. No acute seizure Physical exam: General: Alert, Oriented x3, Cooperative HEENT: Atraumatic, PERRLA, EOMI, Normocephalic Oral: Oral mucosa moist. No Gingival or Mucosal Lesions/ Ulcerations Neck: Supple, No JVD, Negative Carotid Bruits Lungs: Air entry diminished in bilateral lung bases. No crepitation/rhonchi Cardiovascular: Regular rate, Regular Rhythm, Normal S1, Normal S2, No murmurs Abdomen: Bowel Sounds Present, Soft, Non Tender, Non-Distended : No renal angle tenderness. No suprapubic tenderness. Extremities: No edema, Capillary Refill Less than 3 Seconds Skin: No rashes, No breakdown Musculoskeletal: No Tenderness to Palpation of Joints or Extremities Neurological: Cranial nerves II-XII grossly intact, DTR 2+/4 and Symmetrical, Neuro grossly intact Psych/Mental Status: Flat affect, mild tremors. Assessment & Plan Assessment/Plan (1) Desire for detoxification: (2) Alcohol abuse: PLAN: Plan 1. Alcohol dependence and desire for detoxification Alcohol level on presentation was 285. Patient on phenobarbital based order set along with other adjunctive medications as needed for alcohol withdrawal symptom control. CIWA monitor. scheduled thiamine; and schedule folic acid. 2. Chronic tobacco/nicotine use disorder and smoking Counseled Nicotine patch was prescribed. DVT prophylaxis Low risk Encourage to ambulate Charges/Coding Visit Charges Inpatient E&M: 26575 Subs Hosp L2
[2023-03-22] MEDS: Ferrous Sulfate 325 MG Tablet PO (08:02)
[2023-03-22] MEDS: DULoxetine Hcl 60 MG Capsule 120 MG PO (08:02)
[2023-03-22] MEDS: Folic Acid 1 MG Tablet PO (08:03)
[2023-03-22] MEDS: Thiamine Hydrochloride 100 MG Tablet PO (08:03)
[2023-03-22] MEDS: Propranolol 10 MG Tablet 20 MG PO ×2 (08:03→21:53)
[2023-03-22] MEDS: buPROPion (XL) 150 MG TABLET.XL 450 MG PO (08:03)
[2023-03-22] MEDS: Gabapentin 300 MG Capsule PO ×2 (09:25→21:53)
[2023-03-22] MEDS: Dicyclomine 10 MG Capsule 20 MG PO (13:32)
[2023-03-22] MEDS: Zolpidem Tartrate 5 MG Tablet PO (21:53)
[2023-03-23 01:32] VITALS: BP 151/119; PULSE 67; RESP 15; TEMP 36.6; O2SAT 100
[2023-03-23] MEDS: Phenobarbital 32.4 MG Tablet 64.7999999999999972 MG PO ×6 (01:34→20:36)
[2023-03-23] MEDS: hydrOXYzine PAM 25 MG Capsule 50 MG PO ×3 (01:35→20:41)
[2023-03-23 08:02] VITALS: BP 154/111; PULSE 71; RESP 18; TEMP 37.1; O2SAT 100
[2023-03-23] MEDS: Folic Acid 1 MG Tablet PO (08:18)
[2023-03-23] MEDS: DULoxetine Hcl 60 MG Capsule 120 MG PO (08:18)
[2023-03-23] MEDS: Propranolol 10 MG Tablet 20 MG PO ×2 (08:18→21:32)
[2023-03-23] MEDS: Thiamine Hydrochloride 100 MG Tablet PO (08:18)
[2023-03-23] MEDS: Loperamide 2 MG Capsule PO (08:18)
[2023-03-23] MEDS: buPROPion (XL) 150 MG TABLET.XL 450 MG PO (08:19)
--- NOTE | 2023-03-23 09:11 | PCM.PN.HOSP ---
Reason for Visit Reason for Visit: Diagnoses Alcohol abuse, uncomplicated (03/21/23) Subjective Subjective Follow-up for acute alcohol withdrawal syndrome Objective Data Objective Data Vital Signs: Vital Signs Temp Pulse Resp BP Pulse Ox O2 Del Method 98.8 F 71 18 154/111 H 100 Room Air 03/23/23 08:02 03/23/23 08:02 03/23/23 08:02 03/23/23 08:02 03/23/23 08:02 03/23/23 08:09 Oxygen Delivery Method Room Air Weight: 138 lb 14.259 oz Body Mass Index (BMI) 23.1 Intake & Output: Intake and Output for Last 24 Hours 03/21/23 03/22/23 03/23/23 23:59 23:59 23:59 Intake Total 600 / 600 650 / 650 Balance 600 / 600 650 / 650 Lab / Micro Data Result Diagrams: 03/21/23 23:56 03/21/23 23:56 Physical Exam Narrative Seen and examined. Patient is still has a lot of sweating on the neck and upper body. She states medications are not working and its better here than compared to home when she tried to quit herself Patient is stated she relapsed after several years of sobriety. In the past she used to drink 1-2 drinks per month. After relapse, she is drinking half gallon of vodka every day for 3 to 4 months after her father from problem in marriage. Denies hallucination delusion or illusion. No acute seizure Physical exam: General: Alert, Oriented x3, Cooperative HEENT: Atraumatic, PERRLA, EOMI, Normocephalic Oral: Oral mucosa moist. No Gingival or Mucosal Lesions/ Ulcerations Neck: Supple, No JVD, Negative Carotid Bruits Lungs: Air entry diminished in bilateral lung bases. No crepitation/rhonchi Cardiovascular: Regular rate, Regular Rhythm, Normal S1, Normal S2, No murmurs Abdomen: Bowel Sounds Present, Soft, Non Tender, Non-Distended : No renal angle tenderness. No suprapubic tenderness. Extremities: No edema, Capillary Refill Less than 3 Seconds Skin: No rashes, No breakdown Musculoskeletal: No Tenderness to Palpation of Joints or Extremities Neurological: Cranial nerves II-XII grossly intact, DTR 2+/4 and Symmetrical, Neuro grossly intact Psych/Mental Status: Flat affect, tremors resolved. Assessment & Plan Assessment/Plan (1) Desire for detoxification: (2) Alcohol abuse: PLAN: Plan 1. Alcohol dependence and desire for detoxification Alcohol level on presentation was 285. Patient on phenobarbital based order set along with other adjunctive medications as needed for alcohol withdrawal symptom control. CIWA monitor. scheduled thiamine; and schedule folic acid. 03/23: BMP magnesium and phosphorus ordered. Patient has mild alcohol withdrawal symptoms. CIWA score 3. 2. Chronic tobacco/nicotine use disorder and smoking Counseled Nicotine patch was prescribed. DVT prophylaxis Low risk Encourage to ambulate Charges/Coding Visit Charges Inpatient E&M: 44840 Subs Hosp L2
[2023-03-23] MEDS: Gabapentin 300 MG Capsule PO ×2 (09:41→21:32)
--- NOTE | 2023-03-23 12:00 | ADDICTION ---
This newswriter met with PT to conduct ASAM, MSE, AUDIT, DUDIT assessments and to plan for d/c. PT A+Ox4 and participated actively. All assessments completed and placed in PT's chart. PT plans to f/u with [facility] for follow-up recovery support. Pt did not report a need for transport.
[2023-03-23 12:25] LABS: Anion Gap 3 (5-15); BUN 14 mg/dL (7-18); BUN/Creat Ratio 19.4 RATIO (10-20); Calcium,Total 9.8 mg/dL (8.5-10.1); Chloride 102 mmol/L (98-107); Creatinine, Serum 0.72 mg/dL (0.55-1.02); EST Glomerular Filtration Rate 98 mL/min (>60); Est Glom Filt Rate - Afr Amer 118 mL/min (>60); Estimated Creatinine Clearance 98.13 ml/min; Glucose 106 mg/dL (74-106); Magnesium 2.1 mg/dL (1.6-2.6); Phosphorus 4.3 mg/dL (2.5-4.9); Potassium 4.4 mmol/L (3.5-5.1); Sodium Level 137 mmol/L (136-145)
[2023-03-23 14:00] VITALS: BP 143/114; PULSE 75; RESP 18; TEMP 36.8; O2SAT 100
[2023-03-23 20:28] VITALS: BP 158/116; PULSE 79; RESP 18; TEMP 36.8; O2SAT 99
[2023-03-23] MEDS: Zolpidem Tartrate 5 MG Tablet PO (21:32)
[2023-03-24 01:15] VITALS: BP 144/116; PULSE 73; RESP 18; TEMP 36.8; O2SAT 100
[2023-03-24] MEDS: Phenobarbital 32.4 MG Tablet 64.7999999999999972 MG PO ×3 (01:18→09:56)
[2023-03-24] MEDS: 0.9% Saline Lock 10 ML Syringe IV (01:18)
[2023-03-24] MEDS: Dicyclomine 10 MG Capsule 20 MG PO (01:22)
[2023-03-24 05:50] VITALS: BP 136/99; PULSE 80; RESP 80; TEMP 37.1; O2SAT 100
[2023-03-24] MEDS: hydrOXYzine PAM 25 MG Capsule 50 MG PO (06:06)
--- NOTE | 2023-03-24 07:16 | DCINST_ITS ---
Discharge Instructions Diet Discharge Diet: No restrictions Activity Discharge Activity: Return to Normal Activity Weight Bearing Status: Weight bearing as tolerated Dressing / Incision Call your doctor if you observe: Fever of 101 or Higher, Coldness, Increased Pain, Numbness or Tingling, Change in Color, Inability to urinate, Inability to have a bowel movement, Using more than 1 pad per hour, Shortness of breath, Dizziness, Fainting spells, Swelling in the ankles, Chest pain, Prolonged hiccupping, Increased palpitations (irregular heartbeat) and Calf discomfort Follow Up Care When: IN 2 WEEKS Test Results: Test results from this visit will be discussed in further detail at your follow- up appointment, if applicable. Discharge Plan Admission Admit Date/Time: 03/21/23 23:45 Attending Provider: Titi Bansal Primary Care Provider: KYLIE DOBBINS Consulting Providers: Jesse Ellington Instructions Additional Instructions / Restrictions: Follow-up outpatient alcohol rehab as set up by 180. Discharge Orders/Prescriptions Prescriptions: New nicotine 14 mg/24 hr Patch 24 Hour 14 mg transdermal DAILY 28 Days Qty: 28 0RF thiamine HCl (vitamin B1) [Vitamin B-1] 100 mg Tablet 100 mg PO DAILYCM Qty: 30 2RF folic acid 1 mg Tablet 1 mg PO DAILY@0800 30 Days Qty: 30 2RF Continued gabapentin 300 mg capsule 300 mg PO BID Label Comments: TAKE 1 ORAL CAPSULE 2 TIMES A DAY FOR ANXIETY propranolol 20 mg tablet 20 mg PO BID duloxetine 60 mg capsule,delayed release(DR/EC) 120 mg PO DAILY ferrous sulfate 325 mg (65 mg iron) Tablet 325 mg PO QODAY bupropion HCl 150 mg tablet extended release 24 hr 450 mg PO DAILY Qty: 90 0RF hydroxyzine pamoate 25 mg Capsule 50 mg PO Q6H PRN PRN (Reason: mild anxiety) 5 Days Qty: 30 0RF Rx Instructions: Do not mix with alcohol eszopiclone 3 mg tablet 3 mg PO QHS PRN (Reason: Sleep) Label Comments: TAKE 1 TABLET BY MOUTH NIGHTLY NEEDED (INSOMNIA) FOR UP TO 30 DAYS. Referrals / Follow Up: KYLIE DOBBINS DO [Primary Care Provider] - Kylie Dobbins OLS [Non-Staff] - Disposition Disposition (needs filled in before D/C Order can be placed): Home, Self Care
[2023-03-24] MEDS: Thiamine Hydrochloride 100 MG Tablet PO (08:37)
[2023-03-24] MEDS: buPROPion (XL) 150 MG TABLET.XL 450 MG PO (08:37)
[2023-03-24] MEDS: Folic Acid 1 MG Tablet PO (08:37)
[2023-03-24] MEDS: DULoxetine Hcl 60 MG Capsule 120 MG PO (08:37)
[2023-03-24] MEDS: Ferrous Sulfate 325 MG Tablet PO (08:38)
[2023-03-24] MEDS: Propranolol 10 MG Tablet 20 MG PO (08:38)
[2023-03-24] MEDS: Gabapentin 300 MG Capsule PO (09:16)
--- NOTE | 2023-03-24 11:50 | PCM.DC.SUM ---
Providers Date of Admission: 03/21/23 Date of Discharge: 03/24/23 Primary Care Physician: KYLIE DOBBINS DO Reason For Visit: DESIRE FOR DETOXIFICATION Diagnosis Discharge Diagnosis (1) Desire for detoxification: Status: Acute (2) Alcohol abuse: Status: Acute Code(s): F10.10 - Alcohol abuse, uncomplicated Plan This 37-year-old female admitted for acute alcohol withdrawal symptoms including sweating, tremors and anxiety. Patient is stated she relapsed after several years of sobriety. In the past she used to drink 1-2 drinks per month. After relapse, she is drinking half gallon of vodka every day for 3 to 4 months after her father from problem in marriage. Denies hallucination delusion or illusion. No acute seizure 1. Alcohol dependence and desire for detoxification Alcohol level on presentation was 285. Patient on phenobarbital based order set along with other adjunctive medications as needed for alcohol withdrawal symptom control. CIWA monitor. scheduled thiamine; and schedule folic acid. 5/2: BMP magnesium and phosphorus ordered. Patient has mild alcohol withdrawal symptoms. CIWA score 3. 5/3: Patient's symptoms have markedly improved. Acute alcohol withdrawal symptoms resolved. Patient will follow-up outpatient alcohol rehab set up by [facility]. Prescription for folic acid, thiamine and nicotine patch sent to patient's preferred pharmacy. 2. Chronic tobacco/nicotine use disorder and smoking Counseled Nicotine patch was prescribed. DVT prophylaxis Low risk Encourage to ambulate Discharge medication reconciliation done. Discharge follow-up instructions completed. Discharge process discussed with the patient and all questions were answered to patient's satisfaction. Total time spent, exact 35 minutes on discharge meds reconciliation, examination, coordination of care with nurses and ancillary staff, review of imaging and blood test and discussion with the patient on follow-up instructions. Medications at Discharge Home Medications duloxetine 60 mg capsule,delayed release 120 mg PO DAILY depression 01/19/23 ferrous sulfate 325 mg (65 mg iron) tablet 325 mg PO QODAY supplement 01/19/23 gabapentin 300 mg capsule 300 mg PO BID fibromyalgia 01/19/23 propranolol 20 mg tablet 20 mg PO BID anxiety 01/19/23 bupropion HCl 150 mg 24 hr tablet, extended release 450 mg PO DAILY Check with primary doctor #90 tabs 01/23/23 hydroxyzine pamoate 25 mg capsule 50 mg PO Q6H PRN PRN mild anxiety 5 days #30 caps 01/23/23 eszopiclone 3 mg tablet 3 mg PO QHS PRN Sleep 03/22/23 folic acid 1 mg tablet 1 mg PO DAILY@0800 30 days #30 tabs 03/24/23 nicotine 14 mg/24 hr daily transdermal patch 14 mg transdermal DAILY 28 days #28 ea 03/24/23 thiamine HCl (vitamin B1) 100 mg tablet (Vitamin B-1) 100 mg PO DAILYCM #30 tabs 03/24/23 Physical Exam Narrative Seen and examined. Current symptoms of alcohol withdrawal controlled. Physical exam: General: Alert, Oriented x3, Cooperative HEENT: Atraumatic, PERRLA, EOMI, Normocephalic Oral: Oral mucosa moist. No Gingival or Mucosal Lesions/ Ulcerations Neck: Supple, No JVD, Negative Carotid Bruits Lungs: Air entry diminished in bilateral lung bases. No crepitation/rhonchi Cardiovascular: Regular rate, Regular Rhythm, Normal S1, Normal S2, No murmurs Abdomen: Bowel Sounds Present, Soft, Non Tender, Non-Distended : No renal angle tenderness. No suprapubic tenderness. Extremities: No edema, Capillary Refill Less than 3 Seconds Skin: No rashes, No breakdown Musculoskeletal: No Tenderness to Palpation of Joints or Extremities Neurological: Cranial nerves II-XII grossly intact, DTR 2+/4 and Symmetrical, Neuro grossly intact Psych/Mental Status: Flat affect, tremors resolved. Weight / BMI Weight Weight: 138 lb 14.259 oz Body Mass Index (BMI) 23.1 ABG / Lab / Microbiology Data Result Diagrams: 03/21/23 23:56 03/23/23 11:29 Laboratory: Laboratory Results - last 24 hr 03/23/23 11:29: Sodium 137, Potassium 4.4, Chloride 102, Carbon Dioxide 32.0, Anion Gap 3 L, BUN 14, Creatinine 0.72, Estim Creat Clear Calc 98.13, Est GFR (MDRD) Af Amer 118, Est GFR (MDRD) Non-Af 98, BUN/Creatinine Ratio 19.4, Glucose 106, Calcium 9.8, Phosphorus 4.3, Magnesium 2.1 D/C Instructions Discharge Diet: No restrictions Weight Bearing Status: Weight bearing as tolerated Call your doctor if you observe: Fever of 101 or Higher, Coldness, Increased Pain, Numbness or Tingling, Change in Color, Inability to urinate, Inability to have a bowel movement, Using more than 1 pad per hour, Shortness of breath, Dizziness, Fainting spells, Swelling in the ankles, Chest pain, Prolonged hiccupping, Increased palpitations (irregular heartbeat) and Calf discomfort When: IN 2 WEEKS Meaningful Use Info Meaningful Use Diagnoses (Choose all that apply): None applicable Discharge Plan Admission Admit Date/Time: 03/21/23 23:45 Attending Provider: Titi Bansal Primary Care Provider: KYLIE DOBBINS Consulting Providers: Jesse Ellington Instructions Additional Instructions / Restrictions: Follow-up outpatient alcohol rehab as set up by 180. Discharge Orders/Prescriptions Prescriptions: New nicotine 14 mg/24 hr Patch 24 Hour 14 mg transdermal DAILY 28 Days Qty: 28 0RF thiamine HCl (vitamin B1) [Vitamin B-1] 100 mg Tablet 100 mg PO DAILYCM Qty: 30 2RF folic acid 1 mg Tablet 1 mg PO DAILY@0800 30 Days Qty: 30 2RF Continued gabapentin 300 mg capsule 300 mg PO BID Label Comments: TAKE 1 ORAL CAPSULE 2 TIMES A DAY FOR ANXIETY propranolol 20 mg tablet 20 mg PO BID duloxetine 60 mg capsule,delayed release(DR/EC) 120 mg PO DAILY ferrous sulfate 325 mg (65 mg iron) Tablet 325 mg PO QODAY bupropion HCl 150 mg tablet extended release 24 hr 450 mg PO DAILY Qty: 90 0RF hydroxyzine pamoate 25 mg Capsule 50 mg PO Q6H PRN PRN (Reason: mild anxiety) 5 Days Qty: 30 0RF Rx Instructions: Do not mix with alcohol eszopiclone 3 mg tablet 3 mg PO QHS PRN (Reason: Sleep) Label Comments: TAKE 1 TABLET BY MOUTH NIGHTLY NEEDED (INSOMNIA) FOR UP TO 30 DAYS. Referrals / Follow Up: KYLIE DOBBINS DO [Primary Care Provider] - Kylie Dobbins [Non-Staff] - Disposition Disposition (needs filled in before D/C Order can be placed): Home, Self Care Charges/Coding Visit Charges Inpatient E&M: 41058 Disch Hosp >30min
== END 2023-03-24 12:31 | disposition home or self-care (01) | DRG 897 ==
LOC: ED 23:59 → MS3 03-22 07:16
PROVIDERS: Admitting Provider Hospitalist; Emergency Provider Emergency Medicine; PCP Family Medicine; Visit Provider Internal Medicine
DX: F10.239 Alcohol dependence with withdrawal, unspecified (principal); F17.210 Nicotine dependence, cigarettes, uncomplicated; F17.290 Nicotine dependence, other tobacco product, uncomplicated; F41.9 Anxiety disorder, unspecified; I73.00 Raynaud's syndrome without gangrene; M79.7 Fibromyalgia; Y90.8 Blood alcohol level of 240 mg/100 ml or more; F32.A Depression, unspecified; Z63.4 Disappearance and death of family member; Z63.0 Problems in relationship with spouse or partner; Z79.899 Other long term (current) drug therapy
CPT/HCPCS: 36415; 80048; 80053; 80320; 83735; 84100; 85025; 99221; 99284; 99406; A4216; G0378; G0480

== ENCOUNTER 2023-11-20 15:45 | Observation (INO) | payer OTHER, BC, MEDICAID, SELFPAY ==
[2023-11-20 15:46] VITALS: BP 164/104; PULSE 125; RESP 18; TEMP 35.7; O2SAT 97; BMI 20.2
--- NOTE | 2023-11-20 16:00 | EDS_ITS ---
HPI History of Present Illness Chief Complaint: Substance Abuse Informant: patient Narrative Narrative: Patient presents requesting alcohol detox. She states she typically drinks a half a gallon of vodka daily. Her last drink was earlier today. Patient states she is only been drinking recently to help alleviate the withdrawal symptoms of shaking and anxiety. She has had withdrawal seizures previously. Patient states she did go through the detox program at the hospital before and was sober for couple months. PFSH PFSH Medical History Alcohol abuse Anxiety and depression Breast implant status Fibromyalgia Iron deficiency Tobacco use Home Medications duloxetine 60 mg capsule,delayed release 120 mg PO DAILY depression 01/19/23 [History Last Taken 03/21/23] ferrous sulfate 325 mg (65 mg iron) tablet 325 mg PO QODAY supplement 01/19/23 [History Last Taken 03/20/23] gabapentin 300 mg capsule 300 mg PO BID fibromyalgia 01/19/23 [History Last Taken 03/21/23] propranolol 20 mg tablet 20 mg PO BID anxiety 01/19/23 [History Last Taken 03/21/23] bupropion HCl 150 mg 24 hr tablet, extended release 450 mg (3 x 150 mg) PO DAILY Check with primary doctor #90 tabs 01/23/23 [Rx Last Taken 03/21/23] hydroxyzine pamoate 25 mg capsule 50 mg (2 x 25 mg) PO Q6H PRN PRN mild anxiety 5 days #30 caps 01/23/23 [Rx Last Taken Unknown] eszopiclone 3 mg tablet 3 mg PO QHS PRN Sleep 03/22/23 [History Last Taken Unknown] folic acid 1 mg tablet 1 mg PO DAILY@0800 30 days #30 tabs 03/24/23 [Rx Last Taken Unknown] nicotine 14 mg/24 hr daily transdermal patch 14 mg transdermal DAILY 28 days #28 ea 03/24/23 [Rx Last Taken Unknown] thiamine HCl (vitamin B1) 100 mg tablet (Vitamin B-1) 100 mg PO DAILYCM #30 tabs 03/24/23 [Rx Last Taken Unknown] Allergy/AdvReac Type Severity Reaction Status Date / Time No Known Allergies Allergy Verified 11/20/23 15:46 Family History Other Diabetes Hypertension Surgical History (Updated 11/20/23 @ 16:[address] Luanne Asher MD) History of appendectomy History of breast augmentation Social History Smoking Status: Current every day smoker tobacco type: cigarettes and e- cigarettes ROS ROS ED Constitutional Constitutional ED: Denies chills or fever(s) Eyes Eyes: Denies discharge from eye(s) ENT ENT ED: Denies discharge from eye(s), rhinorrhea or sore throat Cardiovascular Cardiovascular: Denies chest pain or palpitations Respiratory/Chest Respiratory/Chest: Denies cough or dyspnea Gastrointestinal Gastrointestinal: Denies abdominal pain, nausea or vomiting Genitourinary Genitourinary ED: Denies dysuria Musculoskeletal Musculoskeletal: Denies back pain or extremity pain Integumentary Denies Abrasions or rash Neurologic Neurologic: Denies headache(s) or weakness Psychiatric Psychiatric: Reports anxiety; Denies depression Endocrine Endocrinology: Denies polydipsia or polyuria Allergic/Immunologic Allergic/Immunologic ED: Denies lip swelling or urticaria EXAM Physical Exam Const Vital Signs: 11/20/23 15:46 Temperature 96.2 F L Temperature Source Temporal Pulse Rate 125 H Respiratory Rate 18 Blood Pressure 164/104 H Blood Pressure Mean 124 Pulse Ox 97 Oxygen Delivery Method Room Air Positive well nourished and well developed General Appearance ED: well developed HEENT Reports moist mucous membranes Eyes EOMs intact bilaterally Chest Wall inspection of chest normal and palpation of chest normal Resp normal respiratory effort and clear to auscultation bilaterally Cardio regular rhythm Rate: tachycardic GI soft to palpation and non-tender Neuro oriented x3 and no sensory deficits noted Motor Exam: strength 5/5 throughout Psych Mood & Affect: anxious MDM MDM MDM Narrative Medical decision making narrative: Patient denies possibility . Lab work sent for addiction medicine. Patient discussed with hospitalist who will see her for admission. Discharge Plan Triage Chief Complaint: Substance Abuse ED Provider: Justa Barron Dx/Rx/DC Orders Clinical Impression: Desire for detoxification, Alcohol abuse Prescriptions: No Action gabapentin 300 mg capsule 300 mg PO BID Patient Comments: TAKE 1 ORAL CAPSULE 2 TIMES A DAY FOR ANXIETY propranolol 20 mg tablet 20 mg PO BID duloxetine 60 mg capsule,delayed release(DR/EC) 120 mg PO DAILY ferrous sulfate 325 mg (65 mg iron) Tablet 325 mg PO QODAY bupropion HCl 150 mg tablet extended release 24 hr 450 mg PO DAILY Qty: 90 0RF hydroxyzine pamoate 25 mg Capsule 50 mg PO Q6H PRN PRN (Reason: mild anxiety) 5 Days Qty: 30 0RF Rx Instructions: Do not mix with alcohol eszopiclone 3 mg tablet 3 mg PO QHS PRN (Reason: Sleep) Patient Comments: TAKE 1 TABLET BY MOUTH NIGHTLY NEEDED (INSOMNIA) FOR UP TO 30 DAYS. nicotine 14 mg/24 hr Patch 24 Hour 14 mg transdermal DAILY 28 Days Qty: 28 0RF thiamine HCl (vitamin B1) [Vitamin B-1] 100 mg Tablet 100 mg PO DAILYCM Qty: 30 2RF folic acid 1 mg Tablet 1 mg PO DAILY@0800 30 Days Qty: 30 2RF Primary Care Provider: KYLIE DOBBINS Referrals: KYLIE DOBBINS DO [Primary Care Provider] - Disposition Disposition: Acute Care [facility]
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
[2023-11-20 16:26] LABS: Absolute Lymphocyte Count 0.89 X10^3/uL (0.83-4.51); Absolute Neutrophil Count 4.7 X10^3/uL (2.0-7.7); Basophil# 0.04 X10^3/uL; Basophil% 0.6 % (0-1); Eosinophil# 0.02 X10^3/uL; Eosinophils% 0.3 % (0-5); Hematocrit 33.4 % (37-47); Lymphocyte # 0.89 X10^3/ul (0.83-4.51); Lymphocyte % 14.2 % (19-41); Mean Corp Hgb Conc 29.9 g/dL (32-36); Mean Corpuscular Hgb 21.9 pg (27.0-32.0); Mean Corpuscular Volume 73.1 fL (81-99); Mean Platelet Vol. 8.7 fl (6.2-12.0); Monocyte# 0.59 X10^3/uL; Monocyte% 9.4 % (0-10); NRBC Flagged by Analyzer 0 % (0-5); Neutrophil # 4.68 X10^3/uL (2.7-7.7); POSITIVE MORPHOLOGY YES; Platelet Count 124 K/mm3 (150-450); RBC Distribution Width CV 26.6 % (11.6-14.6); RBC Distribution Width SD 69.1 fl (35.1-43.9); Red Blood Count 4.57 M/mm3 (4.2-5.4); White Blood Count 6.3 K/mm3 (4.4-11.0)
[2023-11-20 16:37] VITALS: BP 164/104; PULSE 125; RESP 18; TEMP 35.7; O2SAT 97
[2023-11-20 16:46] LABS: Internal QC Validated? YES +Cl - CLEAR BKGD; Pregnancy, Serum, hCG Quali. NEGATIVE Negative
[2023-11-20 16:48] LABS: ALB/GLOB Ratio 1.2 RATIO (0.9-2.4); AST(SGOT) 241 U/L (15-37); Alanine Aminotransfer ALT/SGPT 141 U/L (13-56); Alkaline Phosphatase 108 U/L (45-117); Anion Gap 9 (5-15); BUN 15 mg/dL (7-18); BUN/Creat Ratio 22.5 RATIO (10-20); Calcium,Total 9.8 mg/dL (8.5-10.1); Chloride 102 mmol/L (98-107); Creatinine, Serum 0.67 mg/dL (0.55-1.02); EST Glomerular Filtration Rate 107 mL/min (>60); Est Glom Filt Rate - Afr Amer 129 mL/min (>60); Estimated Creatinine Clearance 101.15 ml/min; Globulin 3.2 g/dL (2.2-4.2); Glucose 110 mg/dL (74-106); Magnesium 1.7 mg/dL (1.6-2.6); Potassium 3.2 mmol/L (3.5-5.1); Protein, Total 7.2 g/dL (6.4-8.2); Sodium Level 139 mmol/L (136-145)
[2023-11-20 16:49] LABS: Differential Indicated SCAN CRITERIA MET
[2023-11-20 16:53] LABS: Differential Comment SCANNED
[2023-11-20 17:08] VITALS: BMI 19.8
[2023-11-20 17:13] LABS: Amphetamine Urine POSITIVE (<1000 ng/mL); Barbiturate Urine NEGATIVE (< 200 ng/mL); Benzodiazepine Urine NEGATIVE (< 200 ng/mL); Cocaine Urine NEGATIVE (< 300 ng/mL); Ecstacy Urine POSITIVE (< 500 ng/mL); Methadone Urine NEGATIVE (< 300 ng/mL); Opiates Urine NEGATIVE (< 300 ng/mL); PCP Urine NEGATIVE (< 25 ng/mL); THC Urine POSITIVE (< 50 ng/mL); Vista UDS pH Range 6
[2023-11-20 17:15] VITALS: BP 152/106; PULSE 102; RESP 16; TEMP 36.4; O2SAT 100
[2023-11-20 17:16] VITALS: BP 152/106; PULSE 102; RESP 16; TEMP 36.4; O2SAT 100
[2023-11-20] MEDS: Potassium Chloride Oral Tablet 20 MEQ 40 MEQ PO (17:29)
[2023-11-20] MEDS: Phenobarbital 32.4 MG Tablet PO ×2 (17:29→21:32)
[2023-11-20] MEDS: Pantoprazole Sodium 20 MG Tablet PO (17:29)
[2023-11-20] MEDS: Lactated Ringers 1,000 ML 125 ML IV (17:29)
[2023-11-20 17:36] LABS: Phosphorus 4.2 mg/dL (2.5-4.9)
[2023-11-20 21:17] VITALS: BP 158/111; PULSE 102; RESP 16; TEMP 37.3; O2SAT 99
[2023-11-20] MEDS: Gabapentin 300 MG Capsule PO (21:32)
[2023-11-20] MEDS: Propranolol 10 MG Tablet 20 MG PO (21:32)
[2023-11-20] MEDS: Loperamide 2 MG Capsule PO (21:32)
[2023-11-21] VITALS (8 sets, daily range): BP systolic 122–153; BP diastolic 83–110; PULSE 75–89; RESP 16; TEMP 36.6–37.2; O2SAT 96–100
[2023-11-21] MEDS: LORazepam 1 MG Tablet 2 MG PO ×3 (00:15→22:23)
[2023-11-21] MEDS: Zolpidem Tartrate 5 MG Tablet PO ×2 (00:15→22:22)
[2023-11-21] MEDS: Phenobarbital 32.4 MG Tablet PO ×6 (02:32→22:22)
--- NOTE | 2023-11-21 07:19 | PCM.PN.HOSP ---
Reason for Visit Reason for Visit: Diagnoses Alcohol use, unspecified with withdrawal, unspecified (11/20/23) Objective Data Objective Data Vital Signs: Vital Signs Temp Pulse Resp BP Pulse Ox O2 Del Method 98.2 F 86 16 151/110 H 100 Room Air 11/21/23 05:05 11/21/23 05:05 11/21/23 05:05 11/21/23 05:05 11/21/23 05:05 11/21/23 05:05 Oxygen Delivery Method Room Air Weight: 119 lb Body Mass Index (BMI) 19.8 Intake & Output: Intake and Output for Last 24 Hours 11/19/23 11/20/23 11/21/23 23:59 23:59 23:59 Intake Total 100 / 100 1999 Balance 100 / 100 1999 Lab / Micro Data 11/20/23 16:15 11/20/23 16:15 Labs: Laboratory Results - last 24 hr 11/20/23 16:15: WBC 6.3, RBC 4.57, Hgb 10.0 L, Hct 33.4 L, MCV 73.1 L, MCH 21.9 L, MCHC 29.9 L, RDW Std Deviation 69.1 H, RDW Coeff of Demarcus 26.6 H, Plt Count 124 L, MPV 8.7, Immature Gran % (Auto) 0.500, Neut % (Auto) 75.0 H, Lymph % (Auto) 14.2 L, [place] % (Auto) 9.4, Eos % (Auto) 0.3, Baso % (Auto) 0.6, Absolute Neuts (auto) 4.7, Absolute Lymphs (auto) 0.89, Nucleated RBC % 0, Differential Comment SCANNED, Sodium 139, Potassium 3.2 L, Chloride 102, Carbon Dioxide 28.0, Anion Gap 9, BUN 15, Creatinine 0.67, Estim Creat Clear Calc 101.15, Est GFR (MDRD) Af Amer 129, Est GFR (MDRD) Non-Af 107, BUN/Creatinine Ratio 22.5 H, Glucose 110 H, Calcium 9.8, Phosphorus 4.2, Magnesium 1.7, Total Bilirubin 0.50, AST 241 H, ALT 141 H, Alkaline Phosphatase 108, Total Protein 7.2, Albumin 4.0, Globulin 3.2, Albumin/Globulin Ratio 1.2, Serum , Qual NEGATIVE, Ethyl Alcohol 171.0 11/20/23 16:30: Urine Opiates Screen NEGATIVE, Urine Methadone Screen NEGATIVE, Ur Barbiturates Screen NEGATIVE, Ur Phencyclidine Scrn NEGATIVE, Ur Amphetamines Screen POSITIVE H, MDMA (Ecstasy) Screen POSITIVE H, U Benzodiazepines Scrn NEGATIVE, Urine Cocaine Screen NEGATIVE, U Cannabinoids Screen POSITIVE H, Ur Drug Screen Comment Physical Exam Narrative Seen and examined. Detailed history taken regarding alcohol drinking pattern, amount and habit. Sometimes she gets right upper quadrant abdominal pain mild intermittent. She also has history of seizures 5 times when she was sober last 1 withdrawal seizure in July 2023. Currently she is restless and having tremors. Physical exam General: Alert, Oriented x3, Cooperative HEENT: Atraumatic, PERRLA, EOMI, Normocephalic Oral: No Gingival or Mucosal Lesions/ Ulcerations Neck: Supple, No JVD, Negative Carotid Bruits Lungs: Air entry diminished in bilateral lung bases. No crepitation/rhonchi Cardiovascular: Regular rate, Regular Rhythm, Normal S1, Normal S2, systolic murmur over LLSB possible flow murmur. Abdomen: Soft, tenderness present over right upper quadrant. Liver edge palpable mild hepatomegaly. Clinically no ascites. Mild voluntary guarding but no rigidity/signs of peritonitis : No renal angle tenderness. No suprapubic tenderness. Extremities: No edema, Capillary Refill Less than 3 Seconds Skin: No rashes, No breakdown Musculoskeletal: No Tenderness to Palpation of Joints or Extremities Neurological: Cranial nerves II-XII grossly intact, DTR 2+/4. No acute focal neurological deficit. Psych/Mental Status: Restless, takes more time to recall and answer questions. Anxious Assessment & Plan Assessment/Plan (1) Alcohol withdrawal: PLAN: Plan The patient is a 38 y/o F with history of chronic alcohol use and dependence was admitted on 11/20/23 w/ noted acute EtOH withdrawal. Patient is states she started drinking first time at the age of 16, intermittently at the most 2-3 times a day mainly vodka. Then she gets intermittent drinking pattern and tried to quit herself. Then she was sober for 8 years. She states she had 5 times seizure when she was in the sober.. Her father in April/May 2023 and she started drinking back. Her last seizure was in July 2016, usually gets about 12 to 14 hours after last drink when she tries to quit. #1. Acute alcohol withdrawal syndrome with history of chronic alcohol use, dependence and relapse with history of chronic alcohol withdrawal seizure: [facility] Patient on phenobarbital based order set along with other adjunctive medications gabapentin, Bentyl, Vistaril, clonidine, Klonopin as needed for alcohol withdrawal symptom control. Patient is on thiamine and folate acid. CIWA monitor. manager site consulted. Mild hypokalemia: Potassium is getting replaced. Serum magnesium and phosphorus are in normal range. CMP ordered. #2. Elevated BP without HTN diagnosis: Patient with significant BP elevation upon presentation, although in the setting of withdrawal, will continue to monitor and if c/w hypertension would initiate hypertension oral regimen but in the interim will maintain on IV PRN hydralazine. #3. Chronic alcoholic hepatitis: Patient ALT AST has been elevated in the past on review of the labs. ALT and AST about 4 times baseline. Alkaline phosphatase was normal total bilirubin normal. Her repeat liver chemistry and GGT ordered. The patient is motivated to quit alcohol drinking. manager site Travis Peralta evaluation to see if she qualifies for Vivitrol at the time of discharge. Right upper quadrant sonogram ordered. 4. Polysubstance use disorder with anxiety and depression: U tox positive for amphetamine, ecstasy and cannabinoids. Negative for opioid methadone advised. Continue patient home duloxetine, propranolol, bupropion, eszopiclone home regimen. #4. Chronic iron deficiency, normocytic anemia: Admission CBC pending upon presentation, last noted 03/21/2023 hemoglobin 10.9, MCV 84.2, continue iron supplementation, encourage continued outpatient assessments and follow-up. #5. Fibromyalgia with chronic pain syndrome: We will continue patient home chronic gabapentin regimen. #6. Tobacco Abuse: Encouraged cessation, inpatient consultation per RT, NR if desired. #7. Right index finger cigarette burn: Blister drained in the ED and dressing placed, continue dressings. #8. DVT prophylaxis: Low risk for type of admission, encourage ambulation. Laboratory Results 11/20/23 16:15: WBC 6.3, RBC 4.57, Hgb 10.0 L, Hct 33.4 L, MCV 73.1 L, MCH 21.9 L, MCHC 29.9 L, RDW Std Deviation 69.1 H, RDW Coeff of Demarcus 26.6 H, Plt Count 124 L, MPV 8.7, Immature Gran % (Auto) 0.500, Neut % (Auto) 75.0 H, Lymph % (Auto) 14.2 L, [place] % (Auto) 9.4, Eos % (Auto) 0.3, Baso % (Auto) 0.6, Absolute Neuts (auto) 4.7, Absolute Lymphs (auto) 0.89, Nucleated RBC % 0, Differential Comment SCANNED, Sodium 139, Potassium 3.2 L, Chloride 102, Carbon Dioxide 28.0, Anion Gap 9, BUN 15, Creatinine 0.67, Estim Creat Clear Calc 101.15, Est GFR (MDRD) Af Amer 129, Est GFR (MDRD) Non-Af 107, BUN/Creatinine Ratio 22.5 H, Glucose 110 H, Calcium 9.8, Phosphorus 4.2, Magnesium 1.7, Total Bilirubin 0.50, AST 241 H, ALT 141 H, Alkaline Phosphatase 108, Total Protein 7.2, Albumin 4.0, Globulin 3.2, Albumin/Globulin Ratio 1.2, Serum , Qual NEGATIVE, Ethyl Alcohol 171.0 11/20/23 16:30: Urine Opiates Screen NEGATIVE, Urine Methadone Screen NEGATIVE, Ur Barbiturates Screen NEGATIVE, Ur Phencyclidine Scrn NEGATIVE, Ur Amphetamines Screen POSITIVE H, MDMA (Ecstasy) Screen POSITIVE H, U Benzodiazepines Scrn NEGATIVE, Urine Cocaine Screen NEGATIVE, U Cannabinoids Screen POSITIVE H, Ur Drug Screen Comment Charges/Coding Visit Charges Inpatient E&M: 49294 Subs Hosp L2
[2023-11-21] MEDS: Gabapentin 300 MG Capsule PO ×2 (09:12→22:22)
[2023-11-21] MEDS: DULoxetine Hcl 60 MG Capsule 120 MG PO (09:12)
[2023-11-21] MEDS: Multivitamins,Ther W-Minerals Tablet 1 TABLET PO (09:12)
[2023-11-21] MEDS: Folic Acid 1 MG Tablet PO (09:13)
[2023-11-21] MEDS: Pantoprazole Sodium 20 MG Tablet PO ×2 (09:13→22:22)
[2023-11-21] MEDS: Thiamine Hydrochloride 100 MG Tablet PO (09:13)
[2023-11-21] MEDS: Propranolol 10 MG Tablet 20 MG PO ×2 (09:13→22:20)
[2023-11-21] MEDS: Influenza Virus Vac Quad 23-24 60 MCG/0.5 ML SYRINGE IM (09:14)
[2023-11-21] MEDS: Potassium Chloride Oral Tablet 20 MEQ 40 MEQ PO (09:16)
[2023-11-21] MEDS: Magnesium Chloride 64 MG Delay Rel.Tablet 128 MG PO ×2 (09:16→22:32)
[2023-11-21 11:04] LABS: GGTP 194 U/L (5-55)
[2023-11-21 11:08] LABS: ALB/GLOB Ratio 1.2 RATIO (0.9-2.4); AST(SGOT) 142 U/L (15-37); Alanine Aminotransfer ALT/SGPT 117 U/L (13-56); Albumin, Serum 3.8 g/dL (3.2-5.0); Alkaline Phosphatase 100 U/L (45-117); Anion Gap 5 (5-15); BUN 13 mg/dL (7-18); BUN/Creat Ratio 20.6 RATIO (10-20); Calcium,Total 9.7 mg/dL (8.5-10.1); Chloride 100 mmol/L (98-107); Creatinine, Serum 0.63 mg/dL (0.55-1.02); EST Glomerular Filtration Rate 113 mL/min (>60); Est Glom Filt Rate - Afr Amer 137 mL/min (>60); Estimated Creatinine Clearance 105.19 ml/min; Globulin 3.2 g/dL (2.2-4.2); Glucose 94 mg/dL (74-106); Potassium 3.5 mmol/L (3.5-5.1); Sodium Level 136 mmol/L (136-145)
[2023-11-21] MEDS: Mupirocin Ointment 22gm Tube 1 APPLIC TOPICAL ×2 (13:51→22:20)
[2023-11-21] MEDS: Dicyclomine 10 MG Capsule 20 MG PO (17:50)
[2023-11-21] MEDS: Loperamide 2 MG Capsule PO (17:50)
[2023-11-21] MEDS: Ondansetron 8 MG Tablet PO (22:22)
[2023-11-21] MEDS: 0.9% Saline Lock 10 ML Syringe IV (22:31)
[2023-11-22] VITALS (7 sets, daily range): BP systolic 117–144; BP diastolic 83–96; PULSE 68–81; RESP 14–16; TEMP 36.1–36.8; O2SAT 95–100
[2023-11-22] MEDS: Nicotine Polacrilex 2 MG GUM PO (00:41)
[2023-11-22] MEDS: hydrOXYzine PAM 25 MG Capsule 50 MG PO ×2 (01:14→05:58)
[2023-11-22] MEDS: Phenobarbital 32.4 MG Tablet PO ×6 (01:14→22:35)
[2023-11-22] MEDS: Loperamide 2 MG Capsule PO (05:58)
[2023-11-22] MEDS: Gabapentin 300 MG Capsule PO ×2 (09:13→22:35)
[2023-11-22] MEDS: Potassium Chloride Oral Tablet 20 MEQ 40 MEQ PO (09:14)
[2023-11-22] MEDS: DULoxetine Hcl 60 MG Capsule 120 MG PO (09:14)
[2023-11-22] MEDS: Magnesium Chloride 64 MG Delay Rel.Tablet 128 MG PO ×2 (09:14→22:37)
[2023-11-22] MEDS: Propranolol 10 MG Tablet 20 MG PO ×2 (09:14→22:36)
[2023-11-22] MEDS: Mupirocin Ointment 22gm Tube 1 APPLIC TOPICAL ×2 (09:15→22:35)
[2023-11-22] MEDS: Folic Acid 1 MG Tablet PO (09:15)
[2023-11-22] MEDS: Pantoprazole Sodium 20 MG Tablet PO ×2 (09:15→22:37)
[2023-11-22] MEDS: Thiamine Hydrochloride 100 MG Tablet PO (09:15)
[2023-11-22] MEDS: Multivitamins,Ther W-Minerals Tablet 1 TABLET PO (09:15)
--- NOTE | 2023-11-22 10:17 | ADDICTION ---
Patient is a 38 year female who was admitted 11/20/23 via ER for ETOH withdrawal. This technical document writer spoke with Dr. Titi Bansal who reports client is having visual/auditory hallucinations. Patient is currently on a Phenobarbital taper and Ativan PRN agitation/anxiety. Dr. Titi Bansal would like patient to consider Vivitrol prior to discharge. Attempted to meet with patient who is sleeping, unable to wake her. [employer] information left on bedside table. Charge nurse updated. RAMP coordinator notified.
--- NOTE | 2023-11-22 11:21 | PCM.PN.HOSP ---
Reason for Visit Reason for Visit: Diagnoses Alcohol use, unspecified with withdrawal, unspecified (11/20/23) Objective Data Objective Data Vital Signs: Vital Signs Temp Pulse Resp BP Pulse Ox O2 Del Method 97.4 F L 76 16 134/94 H 98 Room Air 11/22/23 09:27 11/22/23 09:27 11/22/23 09:27 11/22/23 09:27 11/22/23 09:27 11/22/23 09:27 Oxygen Delivery Method Room Air Weight: 119 lb Body Mass Index (BMI) 19.8 Intake & Output: Intake and Output for Last 24 Hours 11/20/23 11/21/23 11/22/23 23:59 23:59 23:59 Intake Total 100 / 100 2750 / 3250 700 / 700 Balance 100 / 100 2750 / 3250 700 / 700 Lab / Micro Data 11/20/23 16:15 11/21/23 10:35 Physical Exam Narrative Seen and examined. Patient is having kilojoule ulcerations. She is seeing her mom sitting and some of the friend she is talking with. Physical exam General: Awake, disoriented to time and place., Confused HEENT: Atraumatic, PERRLA, EOMI, Normocephalic Oral: No Gingival or Mucosal Lesions/ Ulcerations Neck: Supple, No JVD, Negative Carotid Bruits Lungs: Air entry diminished in bilateral lung bases. No crepitation/rhonchi Cardiovascular: Regular rate, Regular Rhythm, Normal S1, Normal S2, systolic murmur over LLSB possible flow murmur. Abdomen: Soft, tenderness over RUQ resolved. Liver edge palpable mild hepatomegaly. Clinically no ascites. No guarding/rigidity. : No renal angle tenderness. No suprapubic tenderness. Extremities: No edema, Capillary Refill Less than 3 Seconds Skin: No rashes, No breakdown Musculoskeletal: No Tenderness to Palpation of Joints or Extremities Neurological: Cranial nerves II-XII grossly intact, DTR 2+/4. No acute focal neurological deficit. Psych/Mental Status: Visual hallucinations restless, takes more time to recall and answer questions. Anxious Assessment & Plan Assessment/Plan (1) Alcohol withdrawal: PLAN: Plan The patient is a 38 y/o F with history of chronic alcohol use and dependence was admitted on 11/20/23 w/ noted acute EtOH withdrawal. Patient is states she started drinking first time at the age of 16, intermittently at the most 2-3 times a day mainly vodka. Then she gets intermittent drinking pattern and tried to quit herself. Then she was sober for 8 years. She states she had 5 times seizure when she was in the sober.. Her father in May 2023 and she started drinking back. Her last seizure was in July 2016, usually gets about 12 to 14 hours after last drink when she tries to quit. #1. Acute alcohol withdrawal syndrome with history of chronic alcohol use, dependence and relapse with history of chronic alcohol withdrawal seizure: Patient is being admitted to [facility] floor. Patient on phenobarbital based order set along with other adjunctive medications gabapentin, Bentyl, Vistaril, clonidine, Klonopin as needed for alcohol withdrawal symptom control. Patient is on thiamine and folate acid. CIWA monitor. information technology program manager consulted. 11/22: Patient having visual hallucination and states she is talking mumbling to her mother and friend while no one in the room. Confused and disoriented. Will discontinue Gabapentin for now. Mild hypokalemia: Potassium is getting replaced. Serum magnesium and phosphorus are in normal range. CMP ordered. #2. Elevated BP without HTN diagnosis: Patient with significant BP elevation upon presentation, although in the setting of withdrawal, will continue to monitor and if c/w hypertension would initiate hypertension oral regimen but in the interim will maintain on IV PRN hydralazine. #3. Chronic alcoholic hepatitis: Patient ALT AST has been elevated in the past on review of the labs. ALT and AST about 4 times baseline. Alkaline phosphatase was normal total bilirubin normal. Her repeat liver chemistry and GGT ordered. The patient is motivated to quit alcohol drinking. information technology program manager Travis Peralta evaluation to see if she qualifies for Vivitrol at the time of discharge. Right upper quadrant sonogram ordered. 4. Polysubstance use disorder with anxiety and depression: U tox positive for amphetamine, ecstasy and cannabinoids. Negative for opioid methadone advised. Continue patient home duloxetine, propranolol, bupropion, eszopiclone home regimen. #4. Chronic iron deficiency, normocytic anemia: Admission CBC pending upon presentation, last noted 03/21/2023 hemoglobin 10.9, MCV 84.2, continue iron supplementation, encourage continued outpatient assessments and follow-up. #5. Fibromyalgia with chronic pain syndrome: We will continue patient home chronic gabapentin regimen. #6. Tobacco Abuse: Encouraged cessation, inpatient consultation per RT, NR if desired. #7. Right index finger cigarette burn: Blister drained in the ED and dressing placed, continue dressings. #8. DVT prophylaxis: Low risk for type of admission, encourage ambulation. Charges/Coding Visit Charges Inpatient E&M: 17607 Subs Hosp L2
[2023-11-22] MEDS: Ferrous Sulfate 325 MG Tablet PO (12:52)
[2023-11-23 02:37] VITALS: BP 123/84; PULSE 67; RESP 16; TEMP 36.6; O2SAT 100
[2023-11-23] MEDS: hydrOXYzine PAM 25 MG Capsule 50 MG PO ×2 (02:41→18:14)
[2023-11-23] MEDS: Phenobarbital 32.4 MG Tablet PO ×4 (02:41→20:49)
--- NOTE | 2023-11-23 06:00 | US_ITS ---
INDICATION: RUQ tenderness, alcoholic hepatitis EXAMINATION: Ultrasound US Abdomen Limited (quadrant) TECHNIQUE: Chisholm scale and color doppler imaging was performed of the right upper quadrant. COMPARISON: No relevant prior comparison study available FINDINGS: LIVER: There is mild increased echogenicity. Borderline liver and size measuring about 17.6 cm in length. The portal vein is patent with normal hepatopedal flow. No focal hepatic lesion. There is no free fluid. GALLBLADDER AND BILIARY TREE: Status post cholecystectomy. The proximal common bile duct measures 4 mm. The distal common bile duct in the region of the ampulla measures about 8 mm.No definite stone is identified. Sonographic Martinez''s sign: Not assessed. PANCREAS: No focal abnormality is demonstrated in the gyrus portions of the pancreas. No pancreatic ductal dilatation. Right kidney: The right kidney measures 10.2 cm in length. No evidence of hydronephrosis. US/Abdomen Limited IMPRESSION: Mildly dilated distal common bile duct which may not be significant for a postcholecystectomy patient. If symptoms persist, MRCP might be of further value. Electronically Signed: Artis Son MD at 13:35 EST ,
[2023-11-23 07:02] LABS: ALB/GLOB Ratio 1.2 RATIO (0.9-2.4); AST(SGOT) 111 U/L (15-37); Alanine Aminotransfer ALT/SGPT 117 U/L (13-56); Albumin, Serum 3.6 g/dL (3.2-5.0); Alkaline Phosphatase 87 U/L (45-117); Anion Gap 5 (5-15); BUN 11 mg/dL (7-18); BUN/Creat Ratio 23.4 RATIO (10-20); Calcium,Total 9.3 mg/dL (8.5-10.1); Chloride 101 mmol/L (98-107); Creatinine, Serum 0.47 mg/dL (0.55-1.02); EST Glomerular Filtration Rate 159 mL/min (>60); Est Glom Filt Rate - Afr Amer 193 mL/min (>60); Glucose 87 mg/dL (74-106); Potassium 4.1 mmol/L (3.5-5.1); Protein, Total 6.6 g/dL (6.4-8.2); Sodium Level 132 mmol/L (136-145)
[2023-11-23 08:15] VITALS: BP 116/80; PULSE 62; RESP 16; TEMP 36.6; O2SAT 100
[2023-11-23] MEDS: Folic Acid 1 MG Tablet PO (10:41)
[2023-11-23] MEDS: Propranolol 10 MG Tablet 20 MG PO ×2 (10:42→20:50)
[2023-11-23] MEDS: Mupirocin Ointment 22gm Tube 1 APPLIC TOPICAL ×2 (10:42→20:50)
[2023-11-23] MEDS: Thiamine Hydrochloride 100 MG Tablet PO (10:43)
[2023-11-23] MEDS: Potassium Chloride Oral Tablet 20 MEQ 40 MEQ PO (10:45)
[2023-11-23] MEDS: Multivitamins,Ther W-Minerals Tablet 1 TABLET PO (10:45)
[2023-11-23] MEDS: Magnesium Chloride 64 MG Delay Rel.Tablet 128 MG PO ×2 (10:46→20:50)
[2023-11-23] MEDS: Pantoprazole Sodium 20 MG Tablet PO ×2 (10:47→20:51)
--- NOTE | 2023-11-23 11:27 | ADDICTION ---
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 Pt has refused any follow-up treatment.
--- NOTE | 2023-11-23 12:56 | PN.HOSP_ITS ---
Reason for Visit Reason for Visit: Diagnoses Alcohol use, unspecified with withdrawal, unspecified (11/20/23) Objective Data Objective Data Vital Signs: Vital Signs Temp Pulse Resp BP Pulse Ox O2 Del Method 97.9 F 62 16 116/80 100 Room Air 11/23/23 08:15 11/23/23 08:15 11/23/23 08:15 11/23/23 08:15 11/23/23 08:15 11/23/23 08:19 Oxygen Delivery Method Room Air Weight: 119 lb Body Mass Index (BMI) 19.8 Intake & Output: Intake and Output for Last 24 Hours 11/21/23 11/22/23 11/23/23 23:59 23:59 23:59 Intake Total 2750 / 3250 1250 / 1250 Balance 2750 / 3250 1250 / 1250 Lab / Micro Data 11/20/23 16:15 11/23/23 05:50 Labs: Laboratory Results - last 24 hr 11/23/23 05:50: Sodium 132 L, Potassium 4.1, Chloride 101, Carbon Dioxide 26.0, Anion Gap 5, BUN 11, Creatinine 0.47 L, Estim Creat Clear Calc 141.00, Est GFR (MDRD) Af Amer 193, Est GFR (MDRD) Non-Af 159, BUN/Creatinine Ratio 23.4 H, Glucose 87, Calcium 9.3, Total Bilirubin 0.40, AST 111 H, ALT 117 H, Alkaline Phosphatase 87, Total Protein 6.6, Albumin 3.6, Globulin 3.0, Albumin/Globulin Ratio 1.2 Physical Exam Narrative Seen and examined. Patient was having visual hallucination. Today she is still drowsy and lethargic. Physical exam General: Awake, looks better than yesterday. Lethargy. Intermittent disorientation. HEENT: Atraumatic, PERRLA, EOMI, Normocephalic Oral: No Gingival or Mucosal Lesions/ Ulcerations Neck: Supple, No JVD, Negative Carotid Bruits Lungs: Air entry diminished in bilateral lung bases. No crepitation/rhonchi Cardiovascular: Regular rate, Regular Rhythm, Normal S1, Normal S2, systolic murmur over LLSB possible flow murmur. Abdomen: Soft, tenderness over RUQ resolved. Liver edge palpable mild hepatomegaly. Clinically no ascites. No guarding/rigidity. : No renal angle tenderness. No suprapubic tenderness. Extremities: No edema, Capillary Refill Less than 3 Seconds Skin: No rashes, No breakdown Musculoskeletal: No Tenderness to Palpation of Joints or Extremities Neurological: Cranial nerves II-XII grossly intact, DTR 2+/4. No acute focal neurological deficit. Psych/Mental Status: Visual hallucinations, lethargy sometimes obtunded. Anxious Assessment & Plan Assessment/Plan (1) Alcohol withdrawal: PLAN: Plan The patient is a 38 y/o F with history of chronic alcohol use and dependence was admitted on 11/20/23 w/ noted acute EtOH withdrawal. Patient is states she started drinking first time at the age of 16, intermittently at the most 2-3 times a day mainly vodka. Then she gets intermittent drinking pattern and tried to quit herself. Then she was sober for 8 years. She states she had 5 times seizure when she was in the sober.. Her father in April/May 2023 and she started drinking back. Her last seizure was in July 2016, usually gets about 12 to 14 hours after last drink when she tries to quit. #1. Acute alcohol withdrawal syndrome with history of chronic alcohol use, dependence and relapse with history of chronic alcohol withdrawal seizure: Patient is being admitted to [facility] floor. Patient on phenobarbital based order set along with other adjunctive medications gabapentin, Bentyl, Vistaril, clonidine, Klonopin as needed for alcohol withdrawal symptom control. Patient is on thiamine and folate acid. CIWA monitor. software engineering project manager consulted. 1/1: Patient having visual hallucination and states she is talking mumbling to her mother and friend while no one in the room. Confused and disoriented. Will discontinue Gabapentin for now. 1/2: Patient is more awake than yesterday but is still lethargic and obtunded. Discussed with the Kathryn Robles, she is not a candidate for Vivitrol as a U tox screen shows MDMA which sometimes may be seen with fentanyl. On the streets drugs, fentanyl and MDMA are mixed and contaminated. Therefore not candidate for Vivitrol. Continue CIWA score and treatment. Mild hypokalemia: Potassium is getting replaced. Serum magnesium and phosphorus are in normal range. 1/2: Serum sodium 130 blood potassium normal. #2. Elevated BP without HTN diagnosis: Patient with significant BP elevation upon presentation, although in the setting of withdrawal, will continue to monitor and if c/w hypertension would initiate hypertension oral regimen but in the interim will maintain on IV PRN hydralazine. #3. Chronic alcoholic hepatitis: Patient ALT AST has been elevated in the past on review of the labs. ALT and AST about 4 times baseline. Alkaline phos phatase was normal total bilirubin normal. Her repeat liver chemistry and GGT ordered. The patient is motivated to quit alcohol drinking. software engineering project manager 180, Travis evaluation to see if she qualifies for Vivitrol at the time of discharge. Right upper quadrant sonogram ordered. 1/2: Liver chemistry shows improvement in ALT and AST. GGT 194 which means patient is chronic alcoholic. 4. Polysubstance use disorder with anxiety and depression: U tox positive for amphetamine, ecstasy and cannabinoids. Negative for opioid methadone advised. Continue patient home duloxetine, propranolol, bupropion, eszopiclone home regimen. #4. Chronic iron deficiency, normocytic anemia: Admission CBC pending upon presentation, last noted 03/21/2023 hemoglobin 10.9, MCV 84.2, continue iron supplementation, encourage continued outpatient assessments and follow-up. #5. Fibromyalgia with chronic pain syndrome: We will continue patient home chronic gabapentin regimen. #6. Tobacco Abuse: Encouraged cessation, inpatient consultation per RT, NR if desired. #7. Right index finger cigarette burn: Blister drained in the ED and dressing placed, continue dressings. #8. DVT prophylaxis: Low risk for type of admission, encourage ambulation. Charges/Coding Visit Charges Inpatient E&M: 68046 Subs Hosp L2
[2023-11-23 14:53] VITALS: BP 108/76; PULSE 70; RESP 16; TEMP 36.4; O2SAT 100
--- NOTE | 2023-11-23 18:28 | CASEMGMT ---
Social work This patient is on the RAMP program at [facility]. A male arrived to the unit inquiring if this patient was still on unit and whether patient has been discharged yet, as was under the understanding that this patient was supposed to be discharged from detox after three days. The visitor indicated speaking to somebody at [facility] on 11.22.23, and was informed that detox usually takes three days. This chief underwriter, along with charge nurse Marli did not acknowledge whether patient was actually a patient at the hospital or not, but educated that detox time frames are different depending on the person. The visitor appeared to be distressed, as evidenced by constricted affect, and repetitive nature indicating to be worried about the patient, and just wanted to know if patient had been discharged. Reinforced that unable to share anything with the visitor. The visitor then decided that would sit down in the waiting area [facility] to wait and see if the patient happened to be discharged. This chief underwriter met with patient in room, introducing the self and role as the social media content specialist. Let patient know there was a male visitor who arrived to the floor looking for the patient, and is still waiting in the lobby to see if patient would happen to be discharged this evening. After some discussion, it was determined that this was likely the patient's boyfriend Papito Soto. Patient asked if she could go out to the lobby and see if it was her boyfriend. This chief underwriter indicated that could not, which the patient accepted without issue. Patient reports that her boyfriend would be her ride home and that if it the person is indeed her boyfriend, it was okay to let the visitor know that patient remains the patient; that discharge is anticipated for 11.24.23. Patient asked this chief underwriter if the visitor aggressive as He gets protective over me. Assured patient that the visitor was not aggressive. This chief underwriter returned back to the lobby and found the visitor standing in the lobby of [facility], staring out the window. Determined the visitor's name was indeed Papito Soto. Confirmed that patient is not yet discharge, with earliest discharge being 11.24.23, but could be later. Papito then left the unit without issue. Discharge plan: as per addiction medicine as patient is on leaving. -BETTY Lopez, MANAGER AIR *This note was generated with Skylabsation software. It may contain incorrect words, spelling, and punctuation that were not noted in review of the chart prior to signing*
[2023-11-23] MEDS: Gabapentin 300 MG Capsule PO (20:50)
[2023-11-23 21:01] VITALS: BP 118/83; PULSE 76; RESP 16; TEMP 36.8; O2SAT 99
[2023-11-23] MEDS: traZODone 100 MG Tablet PO (23:49)
--- NOTE | 2023-11-24 08:25 | PCM.PN.HOSP ---
Reason for Visit Reason for Visit: Diagnoses Alcohol use, unspecified with withdrawal, unspecified (11/20/23) Subjective Subjective Feels good. Denies hallucinations. Objective Data Objective Data Vital Signs: Vital Signs Temp Pulse Resp BP Pulse Ox O2 Del Method 36.8 C 76 16 118/83 H 99 Room Air 11/23/23 21:01 11/23/23 21:01 11/23/23 21:01 11/23/23 21:01 11/23/23 21:01 11/23/23 21:01 Oxygen Delivery Method Room Air Weight: 53.977 kg Body Mass Index (BMI) 19.8 Intake & Output: Intake and Output for Last 24 Hours 11/22/23 11/23/23 11/24/23 23:59 23:59 23:59 Intake Total 1250 / 1250 800 / 800 Balance 1250 / 1250 800 / 800 Lab / Micro Data 11/20/23 16:15 11/23/23 05:50 Radiography Diagnostic Testing: Radiology Impression Abdomen Ultrasound 11/23/23 06:00 IMPRESSION: Mildly dilated distal common bile duct which may not be significant for a postcholecystectomy patient. If symptoms persist, MRCP might be of further value. Electronically Signed: Artis Son MD at 13:35 EST , Physical Exam Const alert and no apparent distress HEENT head/scalp atraumatic Neuro Sensorium / Orientation: awake and alert Assessment & Plan Assessment/Plan (1) Alcohol withdrawal: PLAN: Plan Acute alcohol withdrawal syndrome with history of chronic alcohol use, dependence and relapse with history of chronic alcohol withdrawal seizure: Patient is being admitted to [facility] floor. Patient on phenobarbital based order set along with other adjunctive medications gabapentin, Bentyl, Vistaril, clonidine, Klonopin as needed for alcohol withdrawal symptom control. Patient is on thiamine and folate acid. 11: Patient having visual hallucination and states she is talking mumbling to her mother and friend while no one in the room. Confused and disoriented. Will discontinue Gabapentin for now. 12: Patient is more awake than yesterday but is still lethargic and obtunded. Discussed with the [address], she is not a candidate for Vivitrol as a U tox screen shows MDMA which sometimes may be seen with fentanyl. On the streets drugs, fentanyl and MDMA are mixed and contaminated. Therefore not candidate for Vivitrol. Continue CIWA score and treatment. 1/3: doing well. no events overnight. Mild hypokalemia: Potassium is getting replaced. Serum magnesium and phosphorus are in normal range. 1/2: Serum sodium 130 blood potassium normal. Chronic conditions: Elevated BP without HTN diagnosis: Patient with significant BP elevation upon presentation, although in the setting of withdrawal, will continue to monitor and if c/w hypertension would initiate hypertension oral regimen but in the interim will maintain on IV PRN hydralazine. Chronic alcoholic hepatitis: Patient ALT AST has been elevated in the past on review of the labs. ALT and AST about 4 times baseline. Alkaline phosphatase was normal total bilirubin normal. Her repeat liver chemistry and GGT ordered. The patient is motivated to quit alcohol drinking. grocery department manager Kathryn Travis evaluation to see if she qualifies for Vivitrol at the time of discharge. Right upper quadrant sonogram ordered. 12: Liver chemistry shows improvement in ALT and AST. GGT 194 which means patient is chronic alcoholic. Polysubstance use disorder with anxiety and depression: U tox positive for amphetamine, ecstasy and cannabinoids. Negative for opioid methadone advised. Continue patient home duloxetine, propranolol, bupropion, eszopiclone home regimen. Chronic iron deficiency, normocytic anemia: Admission CBC pending upon presentation, last noted 03/21/2023 hemoglobin 10.9, MCV 84.2, continue iron supplementation, encourage continued outpatient assessments and follow-up. Fibromyalgia with chronic pain syndrome: We will continue patient home chronic gabapentin regimen. Tobacco Abuse: Encouraged cessation, inpatient consultation per RT, NR if desired. Right index finger cigarette burn: Blister drained in the ED and dressing placed, continue dressings. DVT prophylaxis: Low risk for type of admission, encourage ambulation.
[2023-11-24] MEDS: Phenobarbital 32.4 MG Tablet PO (09:25)
[2023-11-24] MEDS: Pantoprazole Sodium 20 MG Tablet PO (09:25)
[2023-11-24] MEDS: Propranolol 10 MG Tablet 20 MG PO (09:25)
[2023-11-24] MEDS: Magnesium Chloride 64 MG Delay Rel.Tablet 128 MG PO (09:25)
[2023-11-24] MEDS: Thiamine Hydrochloride 100 MG Tablet PO (09:26)
[2023-11-24] MEDS: Folic Acid 1 MG Tablet PO (09:26)
[2023-11-24] MEDS: Mupirocin Ointment 22gm Tube 1 APPLIC TOPICAL (09:26)
[2023-11-24] MEDS: Multivitamins,Ther W-Minerals Tablet 1 TABLET PO (09:26)
[2023-11-24 09:29] VITALS: BP 95/63; PULSE 75; RESP 16; TEMP 36.3; O2SAT 100
--- NOTE | 2023-11-24 11:42 | DS.PCM_ITS ---
Providers Date of Admission: 11/20/23 Primary Care Physician: KYLIE DOBBINS DO Reason For Visit: ETOH WITHDRAWAL Diagnosis Discharge Diagnosis (1) Alcohol withdrawal: Status: Acute Code(s): F10.939 - Alcohol use, unspecified with withdrawal, unspecified Plan Acute alcohol withdrawal syndrome with history of chronic alcohol use, dependence and relapse with history of chronic alcohol withdrawal seizure: * [facility] Patient on phenobarbital based order set along with other adjunctive medications gabapentin, Bentyl, Vistaril, clonidine, Klonopin as needed for alcohol withdrawal symptom control. Patient is on thiamine and folate acid. * 1/: Patient having visual hallucination and states she is talking mumbling to her mother and friend while no one in the room. Confused and disoriented. Will discontinue Gabapentin for now. * 1/2: Patient is more awake than yesterday but is still lethargic and obtunded. Discussed with the Kathryn Robles, she is not a candidate for Vivitrol as a U tox screen shows MDMA which sometimes may be seen with fentanyl. On the streets drugs, fentanyl and MDMA are mixed and contaminated. Therefore not candidate for Vivitrol. Continue CIWA score and treatment. * 1/3: doing well. no events overnight. Mild hypokalemia: Potassium is getting replaced. Serum magnesium and phosphorus are in normal range. * 1/2: Serum sodium 130 blood potassium normal. Chronic conditions: * Elevated BP without HTN diagnosis: Patient with significant BP elevation upon presentation, although in the setting of withdrawal, will continue to monitor and if c/w hypertension would initiate hypertension oral regimen but in the interim will maintain on IV PRN hydralazine. * Chronic alcoholic hepatitis: Patient ALT AST has been elevated in the past on review of the labs. ALT and AST about 4 times baseline. Alkaline phosphatase was normal total bilirubin normal. Her repeat liver chemistry and GGT ordered. The patient is motivated to quit alcohol drinking. manager icu Travis Peralta evaluation to see if she qualifies for Vivitrol at the time of discharge. Right upper quadrant sonogram ordered. 1/2: Liver chemistry shows improvement in ALT and AST. GGT 194 which means patient is chronic alcoholic. * Polysubstance use disorder with anxiety and depression: U tox positive for amphetamine, ecstasy and cannabinoids. Negative for opioid methadone advised. Continue patient home duloxetine, propranolol, bupropion, eszopiclone home regimen. * Chronic iron deficiency, normocytic anemia: Admission CBC pending upon presentation, last noted 03/21/2023 hemoglobin 10.9, MCV 84.2, continue iron supplementation, encourage continued outpatient assessments and follow-up. * Fibromyalgia with chronic pain syndrome: We will continue patient home chronic gabapentin regimen. * Tobacco Abuse: Encouraged cessation, inpatient consultation per RT, NR if desired. * Right index finger cigarette burn: Blister drained in the ED and dressing placed, continue dressings. DVT prophylaxis: Low risk for type of admission, encourage ambulation. Medications at Discharge Home Medications duloxetine 60 mg capsule,delayed release 120 mg PO DAILY depression 01/19/23 ferrous sulfate 325 mg (65 mg iron) tablet 325 mg PO QODAY supplement 01/19/23 gabapentin 300 mg capsule 300 mg PO BID fibromyalgia 01/19/23 propranolol 20 mg tablet 20 mg PO BID anxiety 01/19/23 bupropion HCl 150 mg 24 hr tablet, extended release 450 mg (3 x 150 mg) PO DAILY Check with primary doctor #90 tabs 01/23/23 hydroxyzine pamoate 25 mg capsule 50 mg (2 x 25 mg) PO Q6H PRN PRN mild anxiety 5 days #30 caps 01/23/23 eszopiclone 3 mg tablet 3 mg PO QHS PRN Sleep 03/22/23 folic acid 1 mg tablet 1 mg PO DAILY@0800 30 days #30 tabs 03/24/23 nicotine 14 mg/24 hr daily transdermal patch 14 mg transdermal DAILY 28 days #28 ea 03/24/23 thiamine HCl (vitamin B1) 100 mg tablet (Vitamin B-1) 100 mg PO DAILYCM #30 tabs 03/24/23 Weight / BMI Weight Weight: 53.977 kg Body Mass Index (BMI) 19.8 ABG / Lab / Microbiology Data 11/20/23 16:15 11/23/23 05:50 Radiography Diagnostic Testing: Radiology Impression Abdomen Ultrasound 11/23/23 06:00 IMPRESSION: Mildly dilated distal common bile duct which may not be significant for a postcholecystectomy patient. If symptoms persist, MRCP might be of further value. Electronically Signed: Artis Son MD at 13:35 EST , D/C Instructions Discharge Diet: No restrictions Meaningful Use Info Meaningful Use Diagnoses (Choose all that apply): None applicable Discharge Plan Admission Admit Date/Time: 11/20/23 16:03 Primary Reason for Your Visit: alcohol withdrawal. Attending Provider: Jerardo Ferguson Primary Care Provider: KYLIE DOBBINS Consulting Providers: Luanne Asher; Titi Bansal Instructions Additional Instructions / Restrictions: Follow up with your counselor through your virtual visits. Discharge Orders/Prescriptions Prescriptions: Continued gabapentin 300 mg capsule 300 mg PO BID Patient Comments: TAKE 1 ORAL CAPSULE 2 TIMES A DAY FOR ANXIETY propranolol 20 mg tablet 20 mg PO BID duloxetine 60 mg capsule,delayed release(DR/EC) 120 mg PO DAILY ferrous sulfate 325 mg (65 mg iron) Tablet 325 mg PO QODAY bupropion HCl 150 mg tablet extended release 24 hr 450 mg PO DAILY Qty: 90 0RF hydroxyzine pamoate 25 mg Capsule 50 mg PO Q6H PRN PRN (Reason: mild anxiety) 5 Days Qty: 30 0RF Rx Instructions: Do not mix with alcohol eszopiclone 3 mg tablet 3 mg PO QHS PRN (Reason: Sleep) Patient Comments: TAKE 1 TABLET BY MOUTH NIGHTLY NEEDED (INSOMNIA) FOR UP TO 30 DAYS. nicotine 14 mg/24 hr Patch 24 Hour 14 mg transdermal DAILY 28 Days Qty: 28 0RF thiamine HCl (vitamin B1) [Vitamin B-1] 100 mg Tablet 100 mg PO DAILYCM Qty: 30 2RF folic acid 1 mg Tablet 1 mg PO DAILY@0800 30 Days Qty: 30 2RF Referrals / Follow Up: KYLIE DOBBINS DO [Primary Care Provider] - Within 2 Weeks Disposition Disposition (needs filled in before D/C Order can be placed): Home, Self Care Charges/Coding Visit Charges Inpatient E&M: 22430 Disch Hosp
--- NOTE | 2023-11-24 12:00 | PHA.DC.MR.R ---
Pharmacy IN Med Reconciliation Pharmacy Service has performed discharge medication reconciliation for this patient. The patient's discharge medication list was reviewed for discrepancies and discrepancies were resolved. Medications at Discharge Home Medications duloxetine 60 mg capsule,delayed release 120 mg PO DAILY depression 01/19/23 ferrous sulfate 325 mg (65 mg iron) tablet 325 mg PO QODAY supplement 01/19/23 gabapentin 300 mg capsule 300 mg PO BID fibromyalgia 01/19/23 propranolol 20 mg tablet 20 mg PO BID anxiety 01/19/23 bupropion HCl 150 mg 24 hr tablet, extended release 450 mg (3 x 150 mg) PO DAILY Check with primary doctor #90 tabs 01/23/23 hydroxyzine pamoate 25 mg capsule 50 mg (2 x 25 mg) PO Q6H PRN PRN mild anxiety 5 days #30 caps 01/23/23 eszopiclone 3 mg tablet 3 mg PO QHS PRN Sleep 03/22/23 folic acid 1 mg tablet 1 mg PO DAILY@0800 30 days #30 tabs 03/24/23 nicotine 14 mg/24 hr daily transdermal patch 14 mg transdermal DAILY 28 days #28 ea 03/24/23 thiamine HCl (vitamin B1) 100 mg tablet (Vitamin B-1) 100 mg PO DAILYCM #30 tabs 03/24/23
[2023-11-24 12:06] VITALS: BP 108/75; PULSE 71; RESP 16; TEMP 36.4; O2SAT 100
== END 2023-11-24 12:25 | disposition home or self-care (01) | DRG 897 ==
LOC: ED 16:07 → MS3 11-21 07:12
PROVIDERS: Internal Medicine; Admitting Provider Family Medicine; Emergency Provider Emergency Medicine; PCP Family Medicine
DX: F10.239 Alcohol dependence with withdrawal, unspecified (principal); D50.9 Iron deficiency anemia, unspecified; E87.6 Hypokalemia; F17.210 Nicotine dependence, cigarettes, uncomplicated; F17.290 Nicotine dependence, other tobacco product, uncomplicated; K70.10 Alcoholic hepatitis without ascites; F32.A Depression, unspecified; M79.7 Fibromyalgia; T23.021A Burn of unspecified degree of single right finger (nail) except thumb, initial encounter; F41.9 Anxiety disorder, unspecified; G89.4 Chronic pain syndrome; Z79.899 Other long term (current) drug therapy; Y90.6 Blood alcohol level of 120-199 mg/100 ml; X08.8XXA Exposure to other specified smoke, fire and flames, initial encounter; R03.0 Elevated blood-pressure reading, without diagnosis of hypertension; Z23 Encounter for immunization
CPT/HCPCS: 36415; 76705; 80053; 80307; 82077; 82977; 83735; 84100; 84703; 85025; 96361; 96374; 99221; 99283; 90686; A4216; G0378